=== PATIENT | male | born 1935 | race Caucasian/White ===

== ENCOUNTER 2019-04-18 17:26 | Emergency (ER) | payer OTHER ==
[2019-04-18 17:35] VITALS: TEMP 97.5; BMI 39.9
--- NOTE | 2019-04-18 17:37 | PDOC ---
Rapid Medical Evaluation Medical Evaluation: I have performed a brief in-person evaluation of this patient. The patient presents with a chief complaint of: c/o R foot swelling since 4 days ago after getting off flight from [place]; denies trauma, sob, cp; has hx of DM, asthma, HLD; is on xarelto, but family uncertain why Pertinent physical exam findings: +RLE pedal edema (R leg swelling > L leg), + erythema and warmth along dorsal aspect of R foot I have ordered the following: labs, RLE ultrasound The patient will proceed to the ED for further evaluation. 04/18/19 17:31
[2019-04-18 18:24] LABS: BASO % 1.1 % (0-2.0); EOS % 6.1 % (0-4.5); HEMATOCRIT 34.3 % (35.4-49); HEMOGLOBIN 11.3 GM/dL (11.7-16.9); LYMPH % 24.7 % (8-40); MCH 28.5 pg (25.7-33.7); MEAN CELL VOLUME 86.4 fl (80-96); MEAN PLT VOLUME 7.1 fl (7.5-11.1); MONO % 10.5 % (3.8-10.2); NEUT % 57.6 % (42.8-82.8); PLATELET COUNT 260 K/MM3 (134-434); RBC 3.97 M/mm3 (4.00-5.60); RDW 14.9 % (11.9-15.9); WHITE BLOOD COUNT 7.4 K/mm3 (4.0-10.0)
[2019-04-18 18:36] LABS: INR 0.96 (0.83-1.09); PROTHROMBIN TIME (PATIENT) 11.3 SEC (9.7-13.0)
[2019-04-18 18:38] LABS: ACTIVATED PTT 34.6 SECONDS (25.2-36.5)
[2019-04-18 18:50] LABS: ALBUMIN 3.4 g/dl (3.4-5.0); BILIRUBIN,TOTAL 0.3 mg/dL (0.2-1); BLOOD UREA NITROGEN 17.1 mg/dL (7-18); CALCIUM 8.3 mg/dL (8.5-10.1); CREATININE 1.5 mg/dL (0.55-1.3); POTASSIUM 4.8 mmol/L (3.5-5.1)
--- NOTE | 2019-04-18 19:48 | PDOC ---
History of Present Illness - General Chief Complaint: Edema Stated Complaint: SWOLLEN /RIGHT/LEG Time Seen by Provider: 04/18/19 17:31 History Source: Patient Exam Limitations: No Limitations - History of Present Illness Initial Comments: 04/18/19 20:01 HISTORY OF PRESENT ILLNESS: This is an 83-year-old male past medical history of diabetes, asthma and A. fib on Xarelto who presents emergency department for evaluation of atraumatic right foot swelling status post airline flight from [facility]. Patient reports over the past 3 days noted increased swelling and erythema to his right foot worse on the dorsum. Patient does not remember any trauma reports [place] [facility]. Patient denies any pain in the foot or toes. Patient denies any fevers or chills. No recent travel or sick contacts. PAST MEDICAL HISTORY: see HPI SURGICAL HISTORY: left TKR '18, Left "shoulder surgery" '18 ALLERGIES: No known drug allergies REVIEW OF SYSTEMS General/Constitutional: Denies fever or chills. Denies weakness, weight change. HEENT: Denies change in vision. Denies ear pain or discharge. Denies sore throat. Cardiovascular: Denies chest pain or shortness of breath. Respiratory: Denies cough, wheezing, or hemoptysis. Gastrointestinal: Denies nausea, vomiting, diarrhea or constipation. Denies rectal bleeding. Genitourinary: Denies dysuria, frequency, or change in urination. Musculoskeletal: see HPI Skin and breasts: Denies rash or easy bruising. Neurologic: Denies headache, vertigo, loss of consciousness, or loss of sensation. Psychiatric: Denies depression or anxiety. Endocrine: Denies increased thirst. Denies abnormal weight change. Hematologic/Lymphatic: Denies anemia, easy bleeding, or history of blood clots. Allergic/Immunologic: Denies hives or skin allergy. Denies latex allergy. PHYSICAL EXAM General Appearance: Well-appearing, appropriately dressed. No apparent distress , no intoxication. HEENT: EOMI, PERRLA, normal ENT inspection, normal voice, TMs normal, pharynx normal. No conjunctival pallor. No photophobia, scleral icterus. Neck: Supple. Trachea midline. No tenderness, rigidity, carotid bruit, stridor , lymphadenopathy, or thyromegaly. Respiratory/Chest: Lungs CTAB. No shortness of breath, chest tenderness, respiratory distress, accessory muscle use. No crackles, rales, rhonchi, stridor , wheezing, dullness Cardiovascular: Irregular rhythm. S1, S2. No JVD, murmur, bradycardia, tachycardia. 2+ right pedal edema. Vascular Pulses: Dorsalis-Pedis (R): 2+, Dorsalis-Pedis (L): 2+ Gastrointestinal/Abdominal: Normal bowel sounds. Protuberent abdomen soft, non- tender. No organomegaly, pulsatile mass, guarding, hernia, hepatomegaly, splenomegaly. Lymphatic: No adenopathy, tenderness. Musculoskeletal/Extremities: Normal inspection. FROM of all extremities, normal capillary refill. Pelvis Stable. Erythema present over the Dorsal aspect of MTP of toes 2 through 5 on the right foot. NVI. Integumentary: Appropriate color, dry, warm. No cyanosis, erythema, jaundice or rash Neurologic: servicer travel trailers II-XII intact. Fully oriented, alert. Appropriate mood/affect. Motor strength 5/5. No appreciable EOM palsy, facial droop or sensory deficit. Past History - Past Medical History Allergies/Adverse Reactions: Allergies Allergy/AdvReac Type Severity Reaction Status Date / Time No Known Allergies Allergy Verified 04/18/19 17:36 Home Medications: Ambulatory Orders Clindamycin [Cleocin -] 450 mg PO Q8H #63 capsule 04/18/19 Asthma: Yes Cardiac Disorders: Yes (TAKES XARELTO) COPD: No Diabetes: Yes Hypercholesterolemia: Yes - Suicide/Smoking/Psychosocial Hx Smoking History: Never smoked Hx Alcohol Use: Yes (OCCASIONALLY) Drug/Substance Use Hx: No *Physical Exam - Vital Signs Last Vital Signs Temp Pulse Resp BP Pulse Ox 97.5 F L 85 16 137/53 L 97 04/18/19 17:31 04/18/19 17:31 04/18/19 17:31 04/18/19 17:31 04/18/19 17:31 ED Treatment Course - LABORATORY CBC & Chemistry Diagram: 04/18/19 18:02 04/18/19 18:02 - ADDITIONAL ORDERS Additional order review: Laboratory Results 04/18/19 04/18/19 18:02 18:02 PT with INR 11.30 INR 0.96 PTT (Actin FS) 34.6 Sodium 140 Potassium 4.8 Chloride 106 Carbon Dioxide 23 Anion Gap 12 BUN 17.1 Creatinine 1.5 H Est GFR (CKD-EPI)AfAm 49.19 Est GFR (CKD-EPI)NonAf 42.44 Random Glucose 302 H Calcium 8.3 L Total Bilirubin 0.3 AST 21 ALT 27 Alkaline Phosphatase 106 Total Protein 7.0 Albumin 3.4 04/18/19 18:02 RBC 3.97 L MCV 86.4 MCHC 33.0 RDW 14.9 MPV 7.1 L Neutrophils % 57.6 Lymphocytes % 24.7 Monocytes % 10.5 H Eosinophils % 6.1 H Basophils % 1.1 Medical Decision Making - Medical Decision Making 04/18/19 20:04 A/P: 83-year-old male with atraumatic right foot swelling status post airline flight Labs per [facility] Duplex Dopplers of the right leg as read by Dr. Ty: There is no sonographic evidence of deep pain thrombosis. No obvious superficial thrombophlebitis is noted. X-ray of the right foot Likely discharge 04/18/19 20:32 X-rays of the right foot as read by me: No acute fractures or dislocations noted. Arthritis present in the MTP of the great toe otherwise MTP joints are within normal limits. No bone erosion present. I will discharge patient home with prescription for antibiotics and referral for a new PMD per patient request. 04/18/19 20:41 I discussed the physical exam findings, ancillary test results and final diagnoses with the patient. I answered all of the patient's questions. The patient was satisfied with the care received and felt comfortable with the discharge plan and treatment plan. The patient will call their primary care physician within 24 hours to arrange follow-up and will return to the Emergency Department with any new, persistent or worsening symptoms. Portions of this note have been documented using voice recognition software. As a result, errors may occur in the inspector aligning process. Effort has been made to correct all grammatical and inspector aligning error, but some may have been missed. *DC/Admit/Observation/Transfer Diagnosis at time of Disposition: Cellulitis Qualifiers: Site of cellulitis: extremity Site of cellulitis of extremity: lower extremity Laterality: right Qualified Code(s): L03.115 - Cellulitis of right lower limb - Discharge Dispostion Disposition: HOME Condition at time of disposition: Stable Decision to Admit order: No - Prescriptions Prescriptions: Clindamycin [Cleocin -] 450 mg PO Q8H #63 capsule - Referrals Referrals: Cornell Kearns MD [Staff Physician] - [facility] at [place] [Provider Group] - Patient Instructions Additional Instructions: Take clindamycin 450 mg 3 times a day for the next 7 days Finish all antibiotics even if you feel better. Apply warm compresses to your foot as needed. Return to emergency department for any worsening pain, drainage, or any other concerns. Thank you very much for choosing us to provide your emergent health care needs. - Post Discharge Activity
--- NOTE | 2019-04-18 19:57 | PDOC ---
*Physical Exam - Vital Signs Last Vital Signs Temp Pulse Resp BP Pulse Ox 97.5 F L 85 16 137/53 L 97 04/18/19 17:31 04/18/19 17:31 04/18/19 17:31 04/18/19 17:31 04/18/19 17:31 ED Treatment Course - LABORATORY CBC & Chemistry Diagram: 04/18/19 18:02 04/18/19 18:02 - ADDITIONAL ORDERS Additional order review: Laboratory Results 04/18/19 04/18/19 18:02 18:02 PT with INR 11.30 INR 0.96 PTT (Actin FS) 34.6 Sodium 140 Potassium 4.8 Chloride 106 Carbon Dioxide 23 Anion Gap 12 BUN 17.1 Creatinine 1.5 H Est GFR (CKD-EPI)AfAm 49.19 Est GFR (CKD-EPI)NonAf 42.44 Random Glucose 302 H Calcium 8.3 L Total Bilirubin 0.3 AST 21 ALT 27 Alkaline Phosphatase 106 Total Protein 7.0 Albumin 3.4 04/18/19 18:02 RBC 3.97 L MCV 86.4 MCHC 33.0 RDW 14.9 MPV 7.1 L Neutrophils % 57.6 Lymphocytes % 24.7 Monocytes % 10.5 H Eosinophils % 6.1 H Basophils % 1.1 Medical Decision Making - Medical Decision Making 04/18/19 19:49 Patient seen by the advanced practice provider under my direct supervision. Ancillary testing reviewed as necessary. I agree with plan as outlined by the advanced practice provider. *DC/Admit/Observation/Transfer Diagnosis at time of Disposition: Cellulitis Qualifiers: Site of cellulitis: extremity Site of cellulitis of extremity: lower extremity Laterality: right Qualified Code(s): L03.115 - Cellulitis of right lower limb - Discharge Dispostion Disposition: HOME Condition at time of disposition: Stable - Prescriptions Prescriptions: Clindamycin [Cleocin -] 450 mg PO Q8H #63 capsule - Referrals Referrals: [facility] [place] [facility] at [place] [Provider Group] Cornell Kearns MD [Staff Physician] - - Patient Instructions Additional Instructions: Take clindamycin 450 mg 3 times a day for the next 7 days Finish all antibiotics even if you feel better. Apply warm compresses to your foot as needed. Return to emergency department for any worsening pain, drainage, or any other concerns. Thank you very much for choosing us to provide your emergent health care needs. - Post Discharge Activity
[2019-04-18 20:55] VITALS: BP 128/58; PULSE 72
== END 2019-04-18 21:00 | disposition home or self-care (01) ==
LOC: JER 17:26
DX: L03.115 Cellulitis of right lower limb (principal); I48.91 Unspecified atrial fibrillation; Z79.01 Long term (current) use of anticoagulants; E11.9 Type 2 diabetes mellitus without complications; J45.909 Unspecified asthma, uncomplicated
CPT/HCPCS: 36415; 73630-TC-RT-FY; 80053; 85025; 85610; 85730; 93971-TC; 99282-25

== ENCOUNTER 2019-04-21 17:16 | Inpatient (IN) | payer OTHER ==
--- NOTE | 2019-04-21 17:28 | PDOC ---
Rapid Medical Evaluation Chief Complaint: Pain, Acute Time Seen by Provider: 04/21/19 17:26 Medical Evaluation: Allergies Allergy/AdvReac Type Severity Reaction Status Date / Time No Known Allergies Allergy Verified 04/21/19 17:26 04/21/19 17:28 83 year old male c/o right foot swelling and redness currently on antibiotics. History of DM PE: patient right foot warm to touch with swelling and erythema A: cellulitis? vs dvt? P: US labs 04/21/19 17:29 Discharge Disposition - Diagnosis Cellulitis Qualifiers: Site of cellulitis: extremity Site of cellulitis of extremity: lower extremity Laterality: right Qualified Code(s): L03.115 - Cellulitis of right lower limb - Referrals - Patient Instructions - Post Discharge Activity
[2019-04-21 18:07] LABS: BASO % 1.4 % (0-2.0); EOS % 5.9 % (0-4.5); HEMATOCRIT 34.3 % (35.4-49); HEMOGLOBIN 11.2 GM/dL (11.7-16.9); LYMPH % 25.4 % (8-40); MCH 28.2 pg (25.7-33.7); MCHC 32.7 g/dl (32.0-35.9); MEAN CELL VOLUME 86.4 fl (80-96); MEAN PLT VOLUME 6.6 fl (7.5-11.1); MONO % 9.5 % (3.8-10.2); NEUT % 57.8 % (42.8-82.8); PLATELET COUNT 261 K/MM3 (134-434); RBC 3.97 M/mm3 (4.00-5.60); RDW 14.9 % (11.9-15.9)
[2019-04-21 18:29] LABS: ALBUMIN 3.5 g/dl (3.4-5.0); BILIRUBIN,TOTAL 0.3 mg/dL (0.2-1); BLOOD UREA NITROGEN 13.8 mg/dL (7-18); CALCIUM 8.7 mg/dL (8.5-10.1); CREATININE 1.4 mg/dL (0.55-1.3); POTASSIUM 4.7 mmol/L (3.5-5.1); TOT PROT 7.3 g/dl (6.4-8.2)
--- NOTE | 2019-04-21 19:00 | PDOC ---
History of Present Illness - General Chief Complaint: Redness To Affected Area Stated Complaint: LEG SWOLLEN Time Seen by Provider: 04/21/19 17:26 History Source: Patient Exam Limitations: No Limitations - History of Present Illness Initial Comments: 04/21/19 20:42 83 yo M with a hx of HLD, DM, and afib on xarelto presents to the emergency department with right foot pain. Per the patient, onset of pain was 04/14 after arriving back from [facility] for 5 weeks. Denies trauma while he was there. Denies stepping on a stone or sea urchin. The patient was seen in our emergency department this past Thursday (4 days ago) and was prescribed clindamycin. He has been compliant with the medication since Thursday (4 days worth of doses including today) but has had worsening pain in the right foot. Denies the following: fevers, chills, inability to ambulate, dysuria, hematuria, and diarrhea. Allergies: NKDA Past History - Past Medical History Allergies/Adverse Reactions: Allergies Allergy/AdvReac Type Severity Reaction Status Date / Time No Known Allergies Allergy Verified 04/21/19 17:26 Home Medications: Ambulatory Orders Clindamycin [Cleocin -] 450 mg PO Q8H #63 capsule 04/18/19 Atorvastatin Calcium [Lipitor] 10 mg PO HS 04/21/19 Budesonide [Pulmicort 0.5 mg Nebulizer -] 1 vial IH BID 04/21/19 Linaclotide [Linzess] 290 mcg PO DAILY 04/21/19 Metformin HCl [Glucophage] 1,000 mg PO BID 04/21/19 Montelukast Sodium [Singulair] 10 mg PO HS 04/21/19 Oxybutynin Chloride [Oxybutynin Chloride ER] 5 mg PO DAILY 04/21/19 Repaglinide 0.5 mg PO BID 04/21/19 Rivaroxaban [Xarelto] 2.5 mg PO HS 04/21/19 Sitagliptin Phosphate [Januvia] 100 mg PO DAILY 04/21/19 Asthma: Yes Cardiac Disorders: Yes (TAKES XARELTO) COPD: No Diabetes: Yes Hypercholesterolemia: Yes - Immunization History Immunization Up to Date: Yes - Suicide/Smoking/Psychosocial Hx Smoking History: Never smoked Hx Alcohol Use: No Drug/Substance Use Hx: No Review of Systems - Review of Systems Able to Perform ROS?: Yes Is the patient limited Luxembourger proficient: No Constitutional: No: Chills, Diaphoresis, Fever, Weakness HEENTM: No: Eye Pain, Ear Pain, Nose Pain, Throat Pain, Mouth Pain Respiratory: No: Cough, Shortness of Breath, SOB with Exertion, Hemoptysis Cardiac (ROS): No: Chest Pain, Lightheadedness, Palpitations, Syncope, Chest Tightness ABD/GI: No: Constipated, Diarrhea, Nausea, Rectal Bleeding, Vomiting, Tarry Stools : No: Burning, Dysuria, Hematuria, Incontinence Musculoskeletal: No: Back Pain, Joint Pain, Neck Pain Integumentary: Yes: Erythema (right foot). No: Bruising, Sweating Neurological: No: Headache, Numbness, Tingling, Tremors Psychiatric: No: Change in Appetite Endocrine: No: Unexplained Weight Gain Hematologic/Lymphatic: No: Anemia *Physical Exam - Vital Signs Last Vital Signs Temp Pulse Resp BP Pulse Ox 97.8 F 67 18 118/52 L 97 04/21/19 17:27 04/21/19 17:27 04/21/19 17:27 04/21/19 17:27 04/21/19 17:27 - Physical Exam General Appearance: Yes: Nourished, Appropriately Dressed. No: Apparent Distress, Intoxicated HEENT: positive: EOMI, SHARA, Normal Voice, Symmetrical, Pharynx Normal, Hearing Grossly Normal. negative: Pale Conjunctivae, Scleral Icterus (R), Scleral Icterus (L), Muffled/Hoarse voice, Pharyngeal Erythema, Tonsillar Exudate, Tonsillar Erythema, Nasal Congestion, Rhinorrhea, Sinus Tenderness, Excessive drooling Neck: positive: Trachea midline, Supple. negative: Tender, Lymphadenopathy (R) , Lymphadenopathy (L), Tender lateral, Tender midline Respiratory/Chest: positive: Lungs Clear, Normal Breath Sounds. negative: Chest Tender, Respiratory Distress, Accessory Muscle Use, Crackles, Rales, Rhonchi, Stridor, Wheezing Cardiovascular: positive: Regular Rhythm, Regular Rate, S1, S2. negative: Systolic Murmur Gastrointestinal/Abdominal: positive: Normal Bowel Sounds, Flat, Soft. negative : Tender, Distended, Guarding, Rebound Lymphatic: negative: Adenopathy Musculoskeletal: positive: Normal Inspection. negative: CVA Tenderness, Vertebral Tenderness Extremity: positive: Normal Capillary Refill, Normal Range of Motion, Tender ( right dorsal foot. erythema noted on the dorsal surface right side with point of maximal tenderness at the MCP 2-4. Intact ROM. No puncture site. No purulence. ), Swelling. negative: Normal Inspection Integumentary: positive: Normal Color, Dry, Warm Neurologic: positive: rigging loft repairer II-XII NML intact, Fully Oriented, Alert, Normal Mood/ Affect, Normal Response, Motor Strength 5/5. negative: EOM Palsy, Facial Droop ED Treatment Course - LABORATORY CBC & Chemistry Diagram: 04/21/19 17:53 04/21/19 17:53 - ADDITIONAL ORDERS Additional order review: Laboratory Results 04/21/19 17:53 Sodium 139 Potassium 4.7 Chloride 108 H Carbon Dioxide 26 Anion Gap 6 L BUN 13.8 Creatinine 1.4 H Est GFR (CKD-EPI)AfAm 53.47 Est GFR (CKD-EPI)NonAf 46.13 Random Glucose 162 H Calcium 8.7 Total Bilirubin 0.3 AST 25 ALT 29 Alkaline Phosphatase 85 Total Protein 7.3 Albumin 3.5 04/21/19 17:53 RBC 3.97 L MCV 86.4 MCHC 32.7 RDW 14.9 MPV 6.6 L Neutrophils % 57.8 Lymphocytes % 25.4 Monocytes % 9.5 Eosinophils % 5.9 H Basophils % 1.4 Medical Decision Making - Medical Decision Making 83 yo M with a hx of HLD, DM, and afib on xarelto presents to the emergency department with right foot pain. Per the patient, onset of pain was 04/14 after arriving back from [facility] for 5 weeks. Initial vitals: Initial Vital Signs Temp Pulse Resp BP Pulse Ox 97.8 F 67 18 118/52 L 97 04/21/19 17:27 04/21/19 17:27 04/21/19 17:27 04/21/19 17:27 04/21/19 17:27 Work up; failure of outpatient abx with clindamycin (4 days total thus far). will admit for IV antibiotics with cultures and labs drawn. Laboratory Tests 04/21/19 04/21/19 04/21/19 17:53 17:53 20:05 WBC 8.0 RBC 3.97 L Hgb 11.2 L Hct 34.3 L MCV 86.4 MCH 28.2 MCHC 32.7 RDW 14.9 Plt Count 261 MPV 6.6 L Absolute Neuts (auto) 4.6 Neutrophils % 57.8 Lymphocytes % 25.4 Monocytes % 9.5 Eosinophils % 5.9 H Basophils % 1.4 Nucleated RBC % 0 Sodium 139 Potassium 4.7 Chloride 108 H Carbon Dioxide 26 Anion Gap 6 L BUN 13.8 Creatinine 1.4 H Est GFR (CKD-EPI)AfAm 53.47 Est GFR (CKD-EPI)NonAf 46.13 Random Glucose 162 H Calcium 8.7 Total Bilirubin 0.3 AST 25 ALT 29 Alkaline Phosphatase 85 B-Natriuretic Peptide 301.5 Total Protein 7.3 Albumin 3.5 IV vancomycin and zosyn ordered for MRSA coverage and pseudomonas coverage. Patient was admitted to hospitalists. EKG: Ventricular rate 65 bpm, WV 144 ms, QTC is 407 ms with NSR without ROSE MARIE or ST depression. *DC/Admit/Observation/Transfer Diagnosis at time of Disposition: Cellulitis Qualifiers: Site of cellulitis: extremity Site of cellulitis of extremity: lower extremity Laterality: right Qualified Code(s): L03.115 - Cellulitis of right lower limb - Referrals - Patient Instructions - Post Discharge Activity
[2019-04-21] MEDS ORDERED: VANCOMYCIN 1,000 MG in DEXTROSE 5%-WATER - 250 ML IVPB ONE (19:10)
[2019-04-21] MEDS ORDERED: SODIUM CHLORIDE 500 ML IV STA (19:10)
[2019-04-21] MEDS ORDERED: PIPERACILLIN/TAZOB 3.375 GM 3.375 GM in DEXTROSE 5%-WATER - 50 ML IVPB ONE (19:10)
--- NOTE | 2019-04-21 19:47 | PDOC ---
Attending Attestation - Resident Resident Name: SaharaObed - ED Attending Attestation I have performed the following: I have examined & evaluated the patient, The case was reviewed & discussed with the resident, I agree w/resident's findings & plan, Exceptions are as noted - HPI HPI: 04/21/19 19:42 83yo male with R foot pain. Pt dx with cellulitis of the foot and started on clinda which he started taking on thursday. Has been taking the abx as prescribed , but states the swelling, redness, and pain has not improved and may have become more red. Pt denies f/c. No cp/sob. States dry cough - used inhalers yesterday with relief. No wheezing. no n/v/d. No dysuria. No other Complaints. Pt is diabetic. - Physicial Exam PE: 04/21/19 19:46 Gen: aaox3, nad heart: +s1s2 reg lungs: cta b/l abd: soft, obese, nt/nd, +bs Ext: R anterior dorsum of foot with redness, swelling, warmth, and ttp, pedal pulses intact, redness extends into toes, no ulcers/no wounds, no calf ttp - Medical Decision Making 04/21/19 19:47 a/p: 83yo male with R foot swelling -pt is diabetic -pt has been on outpt abx without improvement -pt with cellulitis of the R foot -pt has failed outpt abx -will send labs, cultures -had xray a few days ago -will send xray of chest -will start broad spectrum abx 04/21/19 20:39 no elevated wbc cultures sent abx ordered microblog sent to [facility] for admission 04/21/19 21:29 resident discussed the case with [facility] who accepts pt to service Heart Score/ECG Review - ECG Intrepretation Comment:: 04/21/19 19:56 sinus at 67 with 1st degree block, rbbb, no acute st/t wave findings
[2019-04-21] MEDS ORDERED: PIPERACILLIN/TAZOB 3.375 GM 3.375 GM/50 ML BAG IVPB ONE (19:54)
[2019-04-21] MEDS ORDERED: VANCOMYCIN 1 GRAM (PRE-DOCKED) 1,000 MG/250 ML BAG IVPB ONE (19:54)
--- NOTE | 2019-04-21 20:56 | PN ---
Teaching Attending Note Name of Resident: Yesi Peña ATTENDING PHYSICIAN STATEMENT I saw and evaluated the patient. I reviewed the resident's note and discussed the case with the resident. I agree with the resident's findings and plan as documented. SUBJECTIVE: Patient is an 83 year old man with PMH of NIDDM, Asthma, HLD, Afib on xarelto, Left total knee replacement, and Left shoulder surgery who presents with with right foot pain. Was in the ER on 04/18/19 and diagnosed with cellulitis of the foot and started on clindamycin which he started taking on thursday. Has been taking it as prescribed, but states the swelling, redness, and pain has not improved and may have become more red. Patient denies fever, chills, nausea, vomiting, diarrhea, SOB, chest pain or dysuria. States he has a dry cough - used inhalers yesterday with relief. No wheezing. Was on a flight from [place] on about 04/14/19 and noted leg swelling upon arrival to [place]. OBJECTIVE: Alert Vital Signs Period Temp Pulse Resp BP Sys/Miguel Pulse Ox Last 24 Hr 97.8 F 67 18 118/52 97 HEENT: No Jaundice, eye redness or discharge, PERRLA, EOMI. Normocephalic, atraumatic. External ears are normal and hearing is grossly intact. No nasal discharge. Neck: Supple, nontender. No palpable adenopathy or thyromegaly. No JVD Chest: Good effort. Expiratory wheezing. Clear to percussion. Heart: Regular. No S3, rub or murmur Abdomen: Not distended, soft, nontender and no HSM. No rebound or guarding. Normal bowel sounds. Ext: Peripheral pulses intact. No leg edema. Anterior dorsum of right foot with redness, swelling, warmth, and tender. Erythema extends into toes. Skin: Warm and dry. No petechiae, rash or ecchymosis. Neuro: Alert. Oriented x3. CN 2-12 grossly intact. Sensation grossly intact in all four extremities and DTR are symmetric. Psych: Appropriate mood and affect. Good insight. Home Medications Medication Instructions Recorded Clindamycin [Cleocin -] 450 mg PO Q8H #63 capsule 04/18/19 Abnormal Lab Results 04/21/19 04/21/19 17:53 17:53 RBC 3.97 L Hgb 11.2 L Hct 34.3 L MPV 6.6 L Eosinophils % 5.9 H Chloride 108 H Anion Gap 6 L Creatinine 1.4 H Random Glucose 162 H ASSESSMENT AND PLAN: 1. Right foot cellulitis - Recent doppler, xray and sonogram today do not show any acute abnormality. Will treat with IV Vancomycin and Zosyn - adjusted for GFR, get MRI of right foot and consult ID. EKG shows NSR with 1o AV block and RBBB. Will treat acute asthma exacerbation with duoneb PRN and prednisone. Will continue comprehensive care of all his comorbid conditions including xarelto for Afib. 2. DM For now, we will hold the home diabetes drugs and implement sliding scale insulin regimen. Provide comprehensive diabetes care with patient teaching and counseling about the importance of adherence to prescribed diabetes regimen, euglycemia, eye care and foot care. 3. FRED - Cause unclear. Will hydrate gently, get kidney sonogram, urinalysis and monitor urine output. Consult nephrology and avoid nephrotoxic agents such as NSAIDS, aminoglycosides, contrast dyes and certain Alternative medicine products. 4. Anemia - Cause unclear. Will do basic anemia work up including serial stool guaiacs, reticulocyte count and iron studies. 5. Obesity Counseled on the risks associated with obesity. Will provide patient all the necessary assistance, counseling and positive reinforcement to facilitate weight loss. Consult cytotechnologist/histotechnologist. 6. DVT prophylaxis - On Xarelto for Afib. 7. Advance directives - Full code
[2019-04-21] MEDS: INSULIN SLIDING SCALE (NOVOLOG) 1 VIAL SQ SCH (23:00)
[2019-04-21] MEDS: SODIUM CHLORIDE 1,000 ML IV SCH (23:02)
--- NOTE | 2019-04-22 00:28 | HP ---
CHIEF COMPLAINT: R foot pain PCP: switching PCP HISTORY OF PRESENT ILLNESS: Lisa Wilson is an 83 year old male with a past medical history of diabetes, asthma, hyperlipidemia, afib (on Xarelto) who presents with right foot pain and failed outpatient treatment of cellulitis. The patient returned from [facility] on 04/14 and stated that pain of the right foot began in the airport prior to leaving [facility]. Patient denied any trauma to the foot, cuts, or walking barefoot, stated that he mostly wore sandals on during the trip. Denied fever, chills, chest pain, abdominal pain, nausea, vomiting, dizziness, lightheadedness , falls, syncope, numbness, tingling, weakness. Patient and family state that since he started having the pain an area of erythema and swelling has increased in size. He originally presented to the ED on 04/18 for the foot pain, foot x-ray was negative, DVT studies negative, and was sent out on clindamycin and told to follow up with outpatient provider. The patient had been taking antibiotics as prescribed daily, however the pain and swelling had not remitted. Patient states that now it is becoming more difficult to walk because of the pain. Additionally, patient had been complaining of a cough and wheezing. Cough was dry. Had to increase the use of his inhalers in the last week. 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 Family History: denies significant family history Allergies No Known Allergies Allergy (Verified 04/21/19 17:26) HOME MEDICATIONS: Home Medications Medication Instructions Recorded Clindamycin [Cleocin -] 450 mg PO Q8H #63 capsule 04/18/19 Atorvastatin Calcium [Lipitor] 10 mg PO HS 04/21/19 Budesonide [Pulmicort 0.5 mg 1 vial IH BID 04/21/19 Nebulizer -] Linaclotide [Linzess] 290 mcg PO DAILY 04/21/19 Metformin HCl [Glucophage] 1,000 mg PO BID 04/21/19 Montelukast Sodium [Singulair] 10 mg PO HS 04/21/19 Oxybutynin Chloride [Oxybutynin 5 mg PO DAILY 04/21/19 Chloride ER] Repaglinide 0.5 mg PO BID 04/21/19 Rivaroxaban [Xarelto] 2.5 mg PO HS 04/21/19 Sitagliptin Phosphate [Januvia] 100 mg PO DAILY 04/21/19 REVIEW OF SYSTEMS CONSTITUTIONAL: Absent: fever, chills, diaphoresis, generalized weakness, malaise, loss of appetite, weight change HEENT: Absent: rhinorrhea, nasal congestion, throat pain, throat swelling, visual changes CARDIOVASCULAR: Absent: chest pain, syncope, palpitations, irregular heart rate, lightheadedness , peripheral edema RESPIRATORY: wheezing, cough Absent: shortness of breath, dyspnea with exertion, orthopnea, stridor, hemoptysis GASTROINTESTINAL: constipation Absent: abdominal pain, abdominal distension, nausea, vomiting, diarrhea, GENITOURINARY: Absent: dysuria, frequency, urgency, hesitancy, hematuria, flank pain, MUSCULOSKELETAL: difficulty ambulating due to pain on R foot Absent: myalgia, arthralgia, joint swelling, back pain, neck pain SKIN: warmth and tenderness on the dorsal side of the R foot Absent: rash, itching, pallor HEMATOLOGIC/IMMUNOLOGIC: Absent: easy bleeding, easy bruising, lymphadenopathy, frequent infections ENDOCRINE: Absent: unexplained weight gain, unexplained weight loss, heat intolerance, cold intolerance NEUROLOGIC: Absent: headache, focal weakness or paresthesias, dizziness, unsteady gait, seizure, mental status changes, bladder or bowel incontinence PSYCHIATRIC: Absent: anxiety, depression, suicidal or homicidal ideation, hallucinations. PHYSICAL EXAMINATION Vital Signs - 24 hr 04/21/19 17:27 Temperature 97.8 F Pulse Rate 67 Respiratory 18 Rate Blood Pressure 118/52 L O2 Sat by Pulse 97 Oximetry (%) GENERAL: Awake, alert, and fully oriented, in no acute distress. HEAD: Normal with no signs of trauma. EYES: Pupils equal, round and reactive to light, extraocular movements intact, sclera anicteric, conjunctiva clear. EARS, NOSE, THROAT: Oropharynx clear without exudates. Moist mucous membranes. NECK: Normal range of motion, supple without lymphadenopathy, JVD. LUNGS: Breath sounds equal, with audible expiratory wheezes bilaterally. No crackles or coarse breath sounds. HEART: Regular rate and rhythm, normal S1 and S2 without murmur, rub. ABDOMEN: Soft, obese, nontender, normoactive bowel sounds, no guarding, no rebound, no masses. MUSCULOSKELETAL: Normal range of motion at all joints. No bony deformities or tenderness. UPPER EXTREMITIES: 2+ pulses, warm, well-perfused. No cyanosis. No clubbing. No peripheral edema. LOWER EXTREMITIES: 1+ pulses, warm, well-perfused. No calf tenderness. No peripheral edema. NEUROLOGICAL: Cranial nerves II-XII intact.5/5 muscle strength bilaterally upper and lower extremities. PSYCHIATRIC: Cooperative. Good eye contact. Appropriate mood and affect. SKIN: Warm, dry, normal turgor. Noted 7cm x 8cm warm, edematous lesion on dorsal surface of R foot. Tender to palpation, fluctuant. Noted small (0.5cm) area of possible trauma over the lesion. Laboratory Results - last 24 hr 04/21/19 04/21/19 04/21/19 17:53 17:53 20:05 WBC 8.0 RBC 3.97 L Hgb 11.2 L Hct 34.3 L MCV 86.4 MCH 28.2 MCHC 32.7 RDW 14.9 Plt Count 261 MPV 6.6 L Absolute Neuts (auto) 4.6 Neutrophils % 57.8 Lymphocytes % 25.4 Monocytes % 9.5 Eosinophils % 5.9 H Basophils % 1.4 Nucleated RBC % 0 Sodium 139 Potassium 4.7 Chloride 108 H Carbon Dioxide 26 Anion Gap 6 L BUN 13.8 Creatinine 1.4 H Est GFR (CKD-EPI)AfAm 53.47 Est GFR (CKD-EPI)NonAf 46.13 POC Glucometer Random Glucose 162 H Calcium 8.7 Total Bilirubin 0.3 AST 25 ALT 29 Alkaline Phosphatase 85 B-Natriuretic Peptide 301.5 Total Protein 7.3 Albumin 3.5 04/21/19 22:58 WBC RBC Hgb Hct MCV MCH MCHC RDW Plt Count MPV Absolute Neuts (auto) Neutrophils % Lymphocytes % Monocytes % Eosinophils % Basophils % Nucleated RBC % Sodium Potassium Chloride Carbon Dioxide Anion Gap BUN Creatinine Est GFR (CKD-EPI)AfAm Est GFR (CKD-EPI)NonAf POC Glucometer 177 Random Glucose Calcium Total Bilirubin AST ALT Alkaline Phosphatase B-Natriuretic Peptide Total Protein Albumin EKG--> 1st degree heart block, RBBB, no ST segment changes, QTc 448 ASSESSMENT/PLAN: Lisa Wilson is an 83 year old male with a past medical history of diabetes, asthma, hyperlipidemia, afib (on Xarelto) admitted for failed outpatient treatment of cellulitis. R foot pain DM Asthma Afib FRED/CKD Anemia R foot pain - likely cellulitis secondary to questionable cut on R foot - failed outpatient treatment and admitted for IV antibiotics - continue IV Vancomycin and Zosyn, renally dosed - vanco level - ID consultation - Blood cultures drawn - MRI to evalute for osteomyelitis - diabetic foot care, podiatry consulted - IV hydration DM - BGM - ISS - A1c Asthma - increased amount of wheezing and cough as noted by patient, may be related to recent infection - continue home inhalers - duoneb q6h prn - prednisone 40mg Afib - currently in sinus rhythm - continue Xarelto FRED/CKD - CRE 1.4, previous 3 days prior CRE 1.5, denies history of renal pathology - IVF - urine CRE, electrolytes - renal U/S Anemia - unclear origin, ? setting in CKD/FRED - iron studies - may benefit from supplemental iron FEN - NS at 75cc/hr - continue to monitor electrolytes and replete as necessary - Diabetic diet Prophylaxis - on Xarelto Code - full code MARIBEL FAM DO - PGY-1 Visit type - Emergency Visit Emergency Visit: Yes ED Registration Date: 04/21/19 Care time: The patient presented to the Emergency Department on the above date and was hospitalized for further evaluation of their emergent condition. - New Patient This patient is new to me today: Yes Date on this admission: 04/22/19 - Critical Care Critical Care patient: No
[2019-04-22] MEDS ORDERED: PIPERACILLIN/TAZOB 3.375 GM 3.375 GM/50 ML BAG IVPB ONE ×2 (03:11→09:17)
[2019-04-22] MEDS: PIPERACILLIN/TAZOB 3.375 GM 3.375 GM in DEXTROSE 5%-WATER - 50 ML IVPB SCH ×3 (03:26→19:45)
[2019-04-22] MEDS ORDERED: ALBUTEROL SO4 2.5/IPRATROPIUM 0.5 INH SOL 3 ML VIAL.NEB. NEB ONE ×2 (03:33→13:05)
[2019-04-22] MEDS: ALBUTEROL SO4 2.5/IPRATROPIUM 0.5 INH SOL 3 ML VIAL.NEB. NEB PRN ×2 (03:39→13:04)
[2019-04-22 07:25] LABS: BASO % 1.2 % (0-2.0); EOS % 6.4 % (0-4.5); HEMATOCRIT 33.2 % (35.4-49); HEMOGLOBIN 11.1 GM/dL (11.7-16.9); LYMPH % 18.9 % (8-40); MCH 28.7 pg (25.7-33.7); MCHC 33.3 g/dl (32.0-35.9); MEAN CELL VOLUME 86.1 fl (80-96); MEAN PLT VOLUME 6.6 fl (7.5-11.1); MONO % 8.6 % (3.8-10.2); NEUT % 64.9 % (42.8-82.8); PLATELET COUNT 240 K/MM3 (134-434); RBC 3.86 M/mm3 (4.00-5.60); RDW 14.9 % (11.9-15.9); WHITE BLOOD COUNT 6.8 K/mm3 (4.0-10.0)
[2019-04-22 07:50] LABS: ALBUMIN 3.4 g/dl (3.4-5.0); BILIRUBIN,TOTAL 0.5 mg/dL (0.2-1); CALCIUM 8.4 mg/dL (8.5-10.1); CREATININE 1.2 mg/dL (0.55-1.3); MAGNESIUM 1.9 mg/dL (1.8-2.4); POTASSIUM 4.5 mmol/L (3.5-5.1); TOT PROT 7.1 g/dl (6.4-8.2)
[2019-04-22] MEDS: INSULIN SLIDING SCALE (NOVOLOG) 1 VIAL SQ SCH ×4 (08:22→23:02)
--- NOTE | 2019-04-22 08:57 | PN ---
Progress Note, Physician Chief Complaint: swelling of right foot and cough History of Present Illness: 83 year old male with a past medical history of diabetes, asthma, hyperlipidemia , afib (on Xarelto) who presents with right foot pain and failed outpatient treatment of cellulitis. The patient returned from [facility] on 04/14 and stated that pain of the right foot began in the airport prior to leaving [facility]. Patient denied any trauma to the foot, cuts, or walking barefoot, stated that he mostly wore sandals on during the trip. Denied fever, chills, chest pain, abdominal pain, nausea, vomiting, dizziness, lightheadedness, falls, syncope, numbness, tingling, weakness. Patient and family state that since he started having the pain an area of erythema and swelling has increased in size. He originally presented to the ED on 04/18 for the foot pain, foot x-ray was negative , DVT studies negative, and was sent out on clindamycin and told to follow up with outpatient provider. The patient had been taking antibiotics as prescribed daily, however the pain and swelling had not remitted. Patient states that now it is becoming more difficult to walk because of the pain. Additionally, patient had been complaining of a cough and wheezing. Cough was dry. Had to increase the use of his inhalers in the last week. - Current Medication List Current Medications: Active Medications Albuterol/Ipratropium (Duoneb -) 1 amp NEB RQID PRN PRN Reason: SHORTNESS OF BREATH Last Admin: 04/22/19 03:39 Dose: 1 amp Atorvastatin Calcium (Lipitor -) 10 mg PO HS ASHLEE Budesonide (Pulmicort 0.5 Mg Nebulizer -) 1 amp NEB RBID ASHLEE Piperacillin Sod/Tazobactam (Sod 3.375 gm/ Dextrose) 50 mls @ 100 mls/hr IVPB Q6H ASHLEE; Protocol Sodium Chloride (Normal Saline -) 1,000 mls @ 75 mls/hr IV ASDIR ASHLEE Last Admin: 04/21/19 23:02 Dose: 75 mls/hr Piperacillin Sod/Tazobactam (Sod 3.375 gm/ Dextrose) 50 mls @ 100 mls/hr IVPB Q6H-IV ASHLEE Stop: 04/22/19 21:29 Last Admin: 04/22/19 03:26 Dose: 100 mls/hr Insulin Aspart (Novolog Vial Sliding Scale -) 1 vial SQ ACHS [facility]; Protocol Last Admin: 04/22/19 08:22 Dose: Not Given Montelukast Sodium (Singulair -) 10 mg PO HS [facility] Non-Formulary Medication (Linaclotide [Linzess]) 290 mcg PO DAILY [facility] Non-Formulary Medication (Oxybutynin Chloride [Oxybutynin Chloride Er]) 5 mg PO DAILY [facility] Prednisone (Deltasone -) 40 mg PO DAILY [facility] Rivaroxaban (Xarelto) 2.5 mg PO HS [facility] - Objective Vital Signs: Vital Signs Temperature 97.8 F 04/22/19 07:12 Pulse Rate 70 04/22/19 07:12 Respiratory Rate 17 04/22/19 07:12 Blood Pressure 121/54 L 04/22/19 07:12 O2 Sat by Pulse Oximetry (%) 97 04/22/19 07:12 Additional Findings/Remarks: GENERAL: Awake, alert, and fully oriented, in no acute distress. HEAD: Normal with no signs of trauma. EYES: Pupils equal, round and reactive to light, extraocular movements intact, sclera anicteric, conjunctiva clear. EARS, NOSE, THROAT: Oropharynx clear without exudates. Moist mucous membranes. NECK: Normal range of motion, supple without lymphadenopathy, JVD. LUNGS: Breath sounds equal, with audible expiratory wheezes bilaterally. No crackles or coarse breath sounds. HEART: Regular rate and rhythm, normal S1 and S2 without murmur, rub. ABDOMEN: Soft, obese, nontender, normoactive bowel sounds, no guarding, no rebound, no masses. MUSCULOSKELETAL: Normal range of motion at all joints. No bony deformities or tenderness. UPPER EXTREMITIES: 2+ pulses, warm, well-perfused. No cyanosis. No clubbing. No peripheral edema. LOWER EXTREMITIES: 1+ pulses, warm, well-perfused. No calf tenderness. No peripheral edema. NEUROLOGICAL: Cranial nerves II-XII intact.5/5 muscle strength bilaterally upper and lower extremities. PSYCHIATRIC: Cooperative. Good eye contact. Appropriate mood and affect. SKIN: Warm, dry, normal turgor 7x7 edematous lesion on right dorsum of foot. Tender to palpation and flucuant. Labs: CBC, BMP 04/22/19 07:00 04/22/19 07:00 - ....Imaging Chest X-ray: Image Reviewed (atelectasis of right base, right shoulder hardware noted) MRI: Report Reviewed Problem List - Problems (1) Diabetes Assessment/Plan: BGM AC/HS with novolog sliding scale diabetic diet restart oral hypoglycemics on discharge Code(s): E11.9 - TYPE 2 DIABETES MELLITUS WITHOUT COMPLICATIONS (2) Asthma Assessment/Plan: c/w inhaled pulmicort duo nebs PRN Code(s): J45.909 - UNSPECIFIED ASTHMA, UNCOMPLICATED (3) HLD (hyperlipidemia) Assessment/Plan: c/w statin Code(s): E78.5 - HYPERLIPIDEMIA, UNSPECIFIED (4) Afib Assessment/Plan: c/w xarelto Code(s): I48.91 - UNSPECIFIED ATRIAL FIBRILLATION (5) FRED (acute kidney injury) Assessment/Plan: Cr 1.4 down to 1.2 with hydration continue to monitor avoid nephrotoxic agents Code(s): N17.9 - ACUTE KIDNEY FAILURE, UNSPECIFIED (6) Prophylactic measure Assessment/Plan: FEN diabetic diet no need for IVF DVT ambulatory on xarelto Dispo maintain as inpatient full code discharge planning Code(s): Z29.9 - ENCOUNTER FOR PROPHYLACTIC MEASURES, UNSPECIFIED (7) Cellulitis Assessment/Plan: US in ED negative for abscess appreciate ID consultation c/w aureliano-change charge to PO if foot looks improved tomorrow No surgical intervention necessary at this time fas per Dr Fernandez Could consider MRI if doesn't improve, has metal implants but likely would be fine for MRI but would need to be cleared by his orthopedist b/c unsure of exact implants Code(s): L03.90 - CELLULITIS, UNSPECIFIED Qualifiers: Site of cellulitis: extremity Site of cellulitis of extremity: lower extremity Laterality: right Qualified Code(s): L03.115 - Cellulitis of right lower limb (8) Atelectasis Assessment/Plan: CXR done with atelctasis noted to R encourage incentive spirometry and ambulation Code(s): J98.11 - ATELECTASIS Visit type - Emergency Visit Emergency Visit: Yes ED Registration Date: 04/21/19 Care time: The patient presented to the Emergency Department on the above date and was hospitalized for further evaluation of their emergent condition. - New Patient This patient is new to me today: Yes Date on this admission: 04/22/19 - Critical Care Critical Care patient: No - Discharge Referral Referred to [facility] Med [facility].: No
[2019-04-22] MEDS: BUDESONIDE 0.5 MG/2 ML INH SUSP VIAL NEB SCH ×2 (09:25→20:12)
[2019-04-22] MEDS: predniSONE 20 MG TABLET (UD) PO SCH (09:27)
[2019-04-22] MEDS ORDERED: PATIENT'S OWN MEDICATION (NON-FORMULARY) (Oxybutynin Chloride [Oxybutynin Chloride Er] 5 M PO SCH (10:00)
[2019-04-22] MEDS ORDERED: PATIENT'S OWN MEDICATION (NON-FORMULARY) (Linaclotide [Linzess] 290 MCG) PO SCH (10:00)
[2019-04-22] MEDS ORDERED: ENOXAPARIN NA (PORCINE) 40 MG/0.4 ML DISP.SYRIN SQ SCH (10:00)
--- NOTE | 2019-04-22 11:45 | PN ---
Progress Note (short form) - Note Progress Note: ID consult dictated cellulitis of the right foot 83 yo man seen in ED on 04/18 with pain and swelling of the right foot- he had just returned from [facility] on 04/14 he had xray and dopplers done which were negative and was discharged on clindamycin which he has been taking he returns last night with increasing pain of the foot and persistent erythema of the dorsum of the right foot no fevers given vanco/zosyn POC us negative for abscess in ED now able to ambulate without pain improving cellulitis of the foot continue zosyn 24 hours, if continues to improve can switch to augmentin in am Problem List - Problems (1) Cellulitis Code(s): L03.90 - CELLULITIS, UNSPECIFIED Qualifiers: Site of cellulitis: extremity Site of cellulitis of extremity: lower extremity Laterality: right Qualified Code(s): L03.115 - Cellulitis of right lower limb
--- NOTE | 2019-04-22 14:06 | EKG ---
Test Reason : Blood Pressure : / mmHG Vent. Rate : 067 BPM Atrial Rate : 067 BPM P-R Int : 240 ms QRS Dur : 146 ms QT Int : 424 ms P-R-T Axes : 015 014 030 degrees QTc Int : 448 ms SINUS RHYTHM WITH 1ST DEGREE A-V BLOCK RIGHT BUNDLE BRANCH BLOCK ABNORMAL ECG NO PREVIOUS ECGS AVAILABLE Confirmed by RANJITH GERMAN MD ([id number]) on 04/22/2019 2:06:09 PM Referred By: Confirmed By:RANJITH GERMAN MD
[2019-04-22 14:27] VITALS: BMI 38.7
--- NOTE | 2019-04-22 17:13 | CONSULT ---
Consult - text type - Consultation Consultation Note: PODIATRY 83 Y/o diabetic male seen with right fot cellulitis. State was on vacation and upon return had swelling and pain and redness top of the right foot. Has xray and US which were both negative. Had been put on oral abx and then returned to the ED due to worsening of redness. Admitted and has been on abx. States foot is feeling better and redness improving. Denies any other complaints. O: Right foot with erythema and pitting edema noted dorsaly over the midfoot, no drainage, no open wound, no streaking proximally, no signs of ascending infection, pulses palpable A: Diabetes type 2 Right foot cellulitis; resolving P: evaluated and reviewed Per patient is getting better US in ED negative for abscess IV abx per ID No surgical intervention necessary at this time from podiatric standpoint Could consider MRI if doesn't improve, has metal implants but likely would be fine for MRI but would need to be cleared by his orthopedist b/c unsure of exact implants Will follow as needed
[2019-04-22] MEDS ORDERED: PIPERACILLIN/TAZOBACTAM 3.375 GM VIAL IVPB ONE (19:40)
[2019-04-22] MEDS ORDERED: DEXTROSE 5%-WATER - 50 ML IVPB ONE (19:40)
[2019-04-22] MEDS ORDERED: RIVAROXABAN 2.5 MG TABLET PO SCH (22:00)
[2019-04-22] MEDS ORDERED: ATORVASTATIN CA 10 MG TABLET (FP) PO SCH (22:00)
[2019-04-22] MEDS ORDERED: MONTELUKAST NA 10 MG TABLET PO SCH (22:00)
[2019-04-22] MEDS ORDERED: PT OWN MED DRAWER 7, Y5N ONE (22:34)
[2019-04-23] MEDS ORDERED: DEXTROSE 5%-WATER - 50 ML IVPB ONE ×2 (02:55→08:53)
[2019-04-23] MEDS ORDERED: PIPERACILLIN/TAZOBACTAM 3.375 GM VIAL IVPB ONE ×2 (02:55→08:53)
[2019-04-23] MEDS: PIPERACILLIN/TAZOB 3.375 GM 3.375 GM in DEXTROSE 5%-WATER - 50 ML IVPB SCH ×3 (02:59→10:27)
[2019-04-23] MEDS: SODIUM CHLORIDE 1,000 ML IV SCH (03:06)
[2019-04-23] MEDS: INSULIN SLIDING SCALE (NOVOLOG) 1 VIAL SQ SCH ×3 (06:54→17:36)
[2019-04-23] MEDS: BUDESONIDE 0.5 MG/2 ML INH SUSP VIAL NEB SCH (07:30)
[2019-04-23 08:21] LABS: BASO % 0.7 % (0-2.0); EOS % 1.7 % (0-4.5); HEMOGLOBIN 11.4 GM/dL (11.7-16.9); LYMPH % 23.2 % (8-40); MCH 28.6 pg (25.7-33.7); MCHC 33.4 g/dl (32.0-35.9); MEAN CELL VOLUME 85.4 fl (80-96); MEAN PLT VOLUME 6.7 fl (7.5-11.1); MONO % 7.6 % (3.8-10.2); NEUT % 66.8 % (42.8-82.8); PLATELET COUNT 287 K/MM3 (134-434); RBC 3.98 M/mm3 (4.00-5.60); RDW 14.6 % (11.9-15.9); WHITE BLOOD COUNT 8.4 K/mm3 (4.0-10.0)
[2019-04-23 09:18] LABS: ALBUMIN 3.4 g/dl (3.4-5.0); BILIRUBIN,TOTAL 0.6 mg/dL (0.2-1); CREATININE 1.2 mg/dL (0.55-1.3); MAGNESIUM 2.1 mg/dL (1.8-2.4); POTASSIUM 4.3 mmol/L (3.5-5.1); TOT PROT 7.3 g/dl (6.4-8.2)
[2019-04-23] MEDS: predniSONE 20 MG TABLET (UD) PO SCH (10:28)
[2019-04-23 16:40] VITALS: BP 144/73; PULSE 56; TEMP 97.6
--- NOTE | 2019-04-24 17:03 | DS ---
Physical Exam: Chief Complaint: swelling of right foot and cough History of Present Illness: 83 year old male with a past medical history of diabetes, asthma, hyperlipidemia , afib (on Xarelto) who presents with right foot pain and failed outpatient treatment of cellulitis. The patient returned from [facility] on 04/14 and stated that pain of the right foot began in the airport prior to leaving [facility]. Patient denied any trauma to the foot, cuts, or walking barefoot, stated that he mostly wore sandals on during the trip. Denied fever, chills, chest pain, abdominal pain, nausea, vomiting, dizziness, lightheadedness, falls, syncope, numbness, tingling, weakness. Patient and family state that since he started having the pain an area of erythema and swelling has increased in size. He originally presented to the ED on 04/18 for the foot pain, foot x-ray was negative , DVT studies negative, and was sent out on clindamycin and told to follow up with outpatient provider. The patient had been taking antibiotics as prescribed daily, however the pain and swelling had not remitted. Patient states that now it is becoming more difficult to walk because of the pain. Additionally, patient had been complaining of a cough and wheezing. Cough was dry. Had to increase the use of his inhalers in the last week. SUBJECTIVE: Patient seen and examined CONSTITUTIONAL: Absent: fever, chills, diaphoresis, generalized weakness, malaise, loss of appetite, weight change HEENT: Absent: rhinorrhea, nasal congestion, throat pain, throat swelling, visual changes CARDIOVASCULAR: Absent: chest pain, syncope, palpitations, irregular heart rate, lightheadedness , peripheral edema RESPIRATORY: wheezing, cough Absent: shortness of breath, dyspnea with exertion, orthopnea, stridor, hemoptysis GASTROINTESTINAL: constipation Absent: abdominal pain, abdominal distension, nausea, vomiting, diarrhea, GENITOURINARY: Absent: dysuria, frequency, urgency, hesitancy, hematuria, flank pain, MUSCULOSKELETAL: Able to ambulate without discomfort Absent: myalgia, arthralgia, joint swelling, back pain, neck pain SKIN: warmth and tenderness on the dorsal side of the R foot Absent: rash, itching, pallor HEMATOLOGIC/IMMUNOLOGIC: Absent: easy bleeding, easy bruising, lymphadenopathy, frequent infections ENDOCRINE: Absent: unexplained weight gain, unexplained weight loss, heat intolerance, cold intolerance NEUROLOGIC: Absent: headache, focal weakness or paresthesias, dizziness, unsteady gait, seizure, mental status changes, bladder or bowel incontinence PSYCHIATRIC: Absent: anxiety, depression, suicidal or homicidal ideation, hallucinations. OBJECTIVE: PHYSICAL EXAM GENERAL: Awake, alert, and fully oriented, in no acute distress. HEAD: Normal with no signs of trauma. EYES: Pupils equal, round and reactive to light, extraocular movements intact, sclera anicteric, conjunctiva clear. EARS, NOSE, THROAT: Oropharynx clear without exudates. Moist mucous membranes. NECK: Normal range of motion, supple without lymphadenopathy, JVD. LUNGS: Breath sounds equal. No crackles or coarse breath sounds. HEART: Regular rate and rhythm, normal S1 and S2 ABDOMEN: Soft, obese, nontender, normoactive bowel sounds, no guarding, no rebound, no masses. MUSCULOSKELETAL: Normal range of motion at all joints. No bony deformities or tenderness. UPPER EXTREMITIES: 2+ pulses, warm, well-perfused. No cyanosis. No clubbing. No peripheral edema. LOWER EXTREMITIES: 1+ pulses, warm, well-perfused. No calf tenderness. No peripheral edema. NEUROLOGICAL: Cranial nerves II-XII intact.5/5 muscle strength bilaterally upper and lower extremities. PSYCHIATRIC: Cooperative. Good eye contact. Appropriate mood and affect. SKIN: Warm, dry, normal turgor. Noted 7cm x 8cm warm, edematous lesion on dorsal surface of R foot. Not tender to palpation HOSPITAL COURSE: Date of Admission:04/21/19 ....Imaging Chest X-ray: Image Reviewed (atelectasis of right base, right shoulder hardware noted) MRI: Report Reviewed Problem List - Problems (1) Diabetes Assessment/Plan: BGM AC/HS with novolog sliding scale diabetic diet restart oral hypoglycemics on discharge Code(s): E11.9 - TYPE 2 DIABETES MELLITUS WITHOUT COMPLICATIONS (2) Asthma Assessment/Plan: c/w inhaled pulmicort duo nebs PRN Code(s): J45.909 - UNSPECIFIED ASTHMA, UNCOMPLICATED (3) HLD (hyperlipidemia) Assessment/Plan: c/w statin Code(s): E78.5 - HYPERLIPIDEMIA, UNSPECIFIED (4) Afib Assessment/Plan: c/w xarelto Code(s): I48.91 - UNSPECIFIED ATRIAL FIBRILLATION (5) FRED (acute kidney injury) Assessment/Plan: Cr 1.4 down to 1.2 with hydration continue to monitor avoid nephrotoxic agents Code(s): N17.9 - ACUTE KIDNEY FAILURE, UNSPECIFIED (6) Prophylactic measure Assessment/Plan: FEN diabetic diet no need for IVF DVT ambulatory on xarelto Dispo maintain as inpatient full code discharge planning Code(s): Z29.9 - ENCOUNTER FOR PROPHYLACTIC MEASURES, UNSPECIFIED (7) Cellulitis Assessment/Plan: US in ED negative for abscess ID following c/w zoysn-change charge to PO if foot looks improved No surgical intervention necessary at this time fas per Dr Fernandez Could consider MRI if doesn't improve, has metal implants but likely would be fine for MRI but would need to be cleared by his orthopedist b/c unsure of exact implants Code(s): L03.90 - CELLULITIS, UNSPECIFIED Qualifiers: Site of cellulitis: extremity Site of cellulitis of extremity: lower extremity Laterality: right Qualified Code(s): L03.115 - Cellulitis of right lower limb (8) Atelectasis Assessment/Plan: CXR done with atelctasis noted to R encourage incentive spirometry and ambulation Code(s): J98.11 - ATELECTASIS Date of Discharge: 04/24/19 Minutes to complete discharge: 40 Discharge Summary Reason For Visit: CELLULITIS Condition: Improved - Instructions Diet, Activity, Other Instructions: Resume activity as tolerated and resume a Heart Healthy Diet. Follow up with the Infectious Disease, Dr. Gino Trivedi. Call his office on Thursday to set up an appointment for the same week. New Medications: Augmentin 875 PO BID for 10 days Referrals: Gino Trivedi MD [Staff Physician] - Disposition: HOME - Home Medications Comprehensive Discharge Medication List: Ambulatory Orders Atorvastatin Calcium [Lipitor] 10 mg PO HS 04/21/19 Budesonide [Pulmicort 0.5 mg Nebulizer -] 1 vial IH BID 04/21/19 Linaclotide [Linzess] 290 mcg PO DAILY 04/21/19 Metformin HCl [Glucophage] 1,000 mg PO BID 04/21/19 Montelukast Sodium [Singulair] 10 mg PO HS 04/21/19 Oxybutynin Chloride [Oxybutynin Chloride ER] 5 mg PO DAILY 04/21/19 Repaglinide 0.5 mg PO BID 04/21/19 Sitagliptin Phosphate [Januvia] 100 mg PO DAILY 04/21/19 Amox-Tr/K Cl [Augmentin - 875Mg Tablet] 1 tab PO BID 10 Days #20 tablet Rivaroxaban [Xarelto -] 20 mg PO HS 04/23/19 This patient is new to me today: Yes Date on this admission: 04/24/19 Emergency Visit: Yes ED Registration Date: 04/21/19 Care time: The patient presented to the Emergency Department on the above date and was hospitalized for further evaluation of their emergent condition. Critical Care patient: No - Discharge Referral Referred to [facility] Med P.C.: No
== END 2019-04-23 18:40 | disposition home or self-care (01) | DRG 202 ==
LOC: JER 17:16 → JERBED 21:19 → J8W 04-22 13:49
PROVIDERS: ADMIT Internal Medicine; ATTEND Nurse Practitioner Acute Care
DX: J45.901 Unspecified asthma with (acute) exacerbation (principal); L03.115 Cellulitis of right lower limb; N17.9 Acute kidney failure, unspecified; J98.11 Atelectasis; I12.9 Hypertensive chronic kidney disease with stage 1 through stage 4 chronic kidney disease, or unspecified chronic kidney disease; E11.22 Type 2 diabetes mellitus with diabetic chronic kidney disease; N18.9 Chronic kidney disease, unspecified; I48.91 Unspecified atrial fibrillation; Z79.01 Long term (current) use of anticoagulants; I44.0 Atrioventricular block, first degree; Z96.652 Presence of left artificial knee joint; D64.9 Anemia, unspecified; E66.9 Obesity, unspecified; Z68.38 Body mass index [BMI] 38.0-38.9, adult; Z79.84 Long term (current) use of oral hypoglycemic drugs
CPT/HCPCS: 36415; 71046-TC-FY; 73718-TC-RT; 76775-TC; 76856-TC; 80053; 82728; 82962; 83036; 83540; 83550; 83735; 83880; 85025; 87040; 93005; 93010; 94640; 99284-25; G0480; J7030

== ENCOUNTER 2019-04-28 07:53 | Emergency (ER) | payer OTHER ==
[2019-04-28 08:03] VITALS: BMI 39.5
--- NOTE | 2019-04-28 08:24 | PDOC ---
History of Present Illness - General Chief Complaint: Back Pain Stated Complaint: BACK PAIN Time Seen by Provider: 04/28/19 08:17 History Source: Patient Exam Limitations: No Limitations - History of Present Illness Initial Comments: Pt is an 83 yo M, with PMH of DM, HLD, asthma, and AFib (on xarelto), who is presenting with L-sided back pain since yesterday afternoon. Pt states yesterday he had been bending over to fix the mailbox, and later in the evening , began to experience L-sided back pain which kept him up during the night. The pts daughter provided him with 1 dose of her own prescription of 4 mg tizanidine PO, which he said did not relieve his pain. Pt denies having pain like this before. Pt was recently discharged from [facility] for cellulitis and osteomyelitis of his R lower leg, which he says has been improving (PO augmentin at home). Pt denies any fevers/chills, headache, vision changes, syncope, chest pain, palpitations, SOB, nausea/vomiting, abdominal pain, midline back pain, incontinence of urine or stool, urinary symptoms, diarrhea/ constipation, numbness/weakness of the extremities, or leg swelling. Allergies: NKDA PCP: Dr. Hahn Social: Pt denies any cigarette, alcohol, or drug use. Pt denies any recent travel or sick contacts. Surgical: L TKR, shoulder surgeries. No spinal interventions in the past. No history of back pain. Family: no relevant history. 04/28/19 08:52 Past History - Travel Traveled outside of the country in the last 30 days: No Close contact w/someone who was outside of country & ill: No - Past Medical History Allergies/Adverse Reactions: Allergies Allergy/AdvReac Type Severity Reaction Status Date / Time No Known Allergies Allergy Verified 04/28/19 07:58 Home Medications: Ambulatory Orders Atorvastatin Calcium [Lipitor] 10 mg PO HS 04/21/19 Linaclotide [Linzess] 290 mcg PO BID 04/21/19 Metformin HCl [Glucophage] 1,000 mg PO BID 04/21/19 Montelukast Sodium [Singulair] 10 mg PO BID 04/21/19 Oxybutynin Chloride [Oxybutynin Chloride ER] 5 mg PO BID 04/21/19 Repaglinide 0.5 mg PO DAILY 04/21/19 Sitagliptin Phosphate [Januvia] 100 mg PO DAILY 04/21/19 Rivaroxaban [Xarelto -] 20 mg PO HS 04/23/19 Methocarbamol [Robaxin -] 500 mg PO BID #10 tablet 04/28/19 Telmisartan 40 mg PO BID 04/28/19 Asthma: Yes Cardiac Disorders: Yes (TAKES XARELTO) COPD: No Diabetes: Yes Hypercholesterolemia: Yes - Immunization History Immunization Up to Date: Yes - Suicide/Smoking/Psychosocial Hx Smoking History: Never smoked Have you smoked in the past 12 months: No Information on smoking cessation initiated: No Hx Alcohol Use: No Drug/Substance Use Hx: No Substance Use Type: None Hx Substance Use Treatment: No Review of Systems - Review of Systems Able to Perform ROS?: Yes Is the patient limited Qatari proficient: No Constitutional: Yes: Weight Stable. No: Chills, Diaphoresis, Fever, Loss of Appetite, Malaise, Weakness HEENTM: No: Recent change in vision, Nose Congestion, Throat Pain, Throat Swelling, Difficulty Swallowing Respiratory: No: Cough, Orthopnea, Shortness of Breath Cardiac (ROS): No: Chest Pain, Edema, Irregular Heart Rate, Lightheadedness, Palpitations, Syncope, Chest Tightness ABD/GI: No: Constipated, Diarrhea, Nausea, Poor Appetite, Poor Fluid Intake, Vomiting : No: Burning, Dysuria, Frequency, Hematuria, Pain, Urgency Musculoskeletal: Yes: See HPI, Back Pain, Muscle Pain. No: Joint Pain, Joint Swelling, Muscle Weakness, Neck Pain Integumentary: No: Rash Neurological: No: Headache, Numbness, Paresthesia, Weakness, Unsteady Gait, Dizziness Psychiatric: No: Sleep Pattern Change, Change in Appetite Endocrine: No: Increased Urine, Change in Weight Hematologic/Lymphatic: Yes: See HPI (Afib on xarelto, no DVT or PE in the past) . No: Anemia, Blood Clots, Easy Bleeding, Easy Bruising All Other Systems: Reviewed and Negative *Physical Exam - Vital Signs Last Vital Signs Temp Pulse Resp BP Pulse Ox 98.5 F 59 L 17 118/61 96 04/28/19 07:58 04/28/19 07:58 04/28/19 07:58 04/28/19 07:58 04/28/19 07:58 - Physical Exam Comments: Vitals stable, pt afebrile. Pt in NAD, sitting upright and appears to be with back spasm. Obese body habitus. Pt alert and oriented x3. abstract clerk generally intact, muscular strength and sensation intact in all extremities. No midline spinal tenderness, step-offs, or crepitus. Reproducible L lower paraspinal TTP over lumbar region. Straight leg test negative. Head normocephalic, atraumatic. Eyes PERRLA, EOMI. Oropharynx without erythema or exudates, no LAD b/l. No nasal congestion, hearing intact. Clear heart sounds, S1/S2, no JVD, b/l pedal edema, or heart murmur. Clear lung sounds, no respiratory distress, wheezes, crackles, or accessory muscle use. No abdominal or CVA tenderness to palpation, no rebound, no guarding. Abdomen soft, non-distended, and with normoactive bowel sounds. Skin without jaundice or rash. 04/28/19 09:24 Medical Decision Making - Medical Decision Making Pt was seen at bedside, also will be seen by attending Dr. Acosta. Pt presenting with L-sided paraspinal lower back pain. Pt was recently in the hospital, likely deconditioned with back spasm. Will provide PO medications and reassess. Will also do UA and bedside aortic/renal US to evaluate for renal dysfunction vs AAA. Provided 5 mg PO valium, lidocaine patch, and 500 mg PO robaxin for improvement of spasm and back pain. Will continue to reassess pt and monitor for symptomatic improvement. 04/28/19 09:26 Bedside US showed no evidence of enlarged aorta (limited by pts size and bowel gas), no hydronephrosis. Pt ambulatory in ED and pain improved after interventions. D/C to home with PCP f/u. Strict return precautions provided with pt understanding. 04/28/19 11:24 *DC/Admit/Observation/Transfer Diagnosis at time of Disposition: Back muscle spasm Low back pain Qualifiers: Chronicity: acute Back pain laterality: left Sciatica presence: unspecified whether sciatica present Qualified Code(s): M54.5 - Low back pain - Discharge Dispostion Disposition: HOME Condition at time of disposition: Improved Decision to Admit order: No - Prescriptions Prescriptions: Methocarbamol [Robaxin -] 500 mg PO BID #10 tablet - Referrals Referrals: Jaky Hahn [Primary Care Provider] - Dallas Smith DO [Staff Physician] - - Patient Instructions Printed Discharge Instructions: DI for Low Back Pain Additional Instructions: You were seen in the ER today for low back pain. The results of your labs and imaging today were normal. Please follow-up with your primary care doctor and orthopedics as needed to discuss your visit and make sure your symptoms have improved. Please return to the ER if you have any worsening pain, incontinence of urine or stool, weakness or numbness in your extremities, development of fevers or chills, loss of consciousness, inability to tolerate food or fluids, or any other concerns. I have sent medications to your pharmacy. Please take these medications as prescribed. You can also take tylenol 6 hours as needed for pain or use lidocaine patches. - Post Discharge Activity
[2019-04-28] MEDS ORDERED: diazePAM 5 MG TABLET PO ONE (08:40)
[2019-04-28] MEDS ORDERED: LIDOCAINE 5% TOPICAL PATCH TP ONE (08:40)
[2019-04-28] MEDS ORDERED: METHOCARBAMOL 500 MG TABLET PO ONE (08:40)
--- NOTE | 2019-04-28 09:25 | PDOC ---
Attending Attestation - Resident Resident Name: Shantal Santana - ED Attending Attestation I have performed the following: I have examined & evaluated the patient, The case was reviewed & discussed with the resident, I agree w/resident's findings & plan, Exceptions are as noted - HPI HPI: 04/28/19 09:22 83 M with h/o DM, HLD, asthma, and AFib (on xarelto) presenting to ED with L lower back pain x 2 weeks. Pt states that it started as a mild pain. Denies any inciting injury or fall. The pain acutely worsened last night. Pt denies any radiation of pain down his leg or to his abdomen. Denies dysuria. Denies F/C. Denies weakness/numbness in his legs or incontinence. Pt states the pain is worse with bending over and turning. Denies abdominal pain. Denies CP/SOB. - Physicial Exam PE: 04/28/19 09:23 "GENERAL: Awake, alert, and fully oriented, in no acute distress. HEAD: No signs of trauma EYES: PERRLA, EOMI, sclera anicteric, conjunctiva clear ENT: Auricles normal inspection, hearing grossly normal, nares patent, oropharynx clear without exudates. Moist mucosa NECK: Nontender, no stepoffs, Normal ROM, supple, no lymphadenopathy, JVD, or masses LUNGS: Breath sounds equal, clear to auscultation bilaterally. No wheezes, and no crackles HEART: Regular rate and rhythm, normal S1 and S2, no murmurs, rubs or gallops ABDOMEN: Soft, nontender, normoactive bowel sounds. No guarding, no rebound. No masses EXTREMITIES: + equal pulses bilaterally, Normal range of motion, no edema. No clubbing or cyanosis. No cords, erythema, or tenderness NEUROLOGICAL: Cranial nerves II through XII intact. 5/5 strength and sensation in all extremities, Normal speech, normal gait, normal cerebellar function SKIN: Warm, Dry, normal turgor, no rashes or lesions noted. BACK: + L lumbar paraspinal TTP, no stepoffs - Medical Decision Making 04/28/19 09:24 83 M with L lower back pain. + pain with straight leg raise on L side. Suspect sciatic nerve pain vs lumbar radiculopathy. No CVAT to suggest renal colic. No abdominal tenderness or masses, normal distal pulses. Low suspicion for vascular emergency. - Pain control - UA 04/28/19 11:13 UA wnl Bedside US reveals normal aorta, normal kidneys Pt is well appearing, with normal vitals. Clinically stable for DC at this time. I discussed the physical exam findings, ancillary test results and final diagnoses with the patient. I answered all of the patient's questions. The patient was satisfied with the care received and felt comfortable with the discharge plan and treatment plan. The patient agrees to follow up with the primary care physician within 24-72 hours.
[2019-04-28] MEDS ORDERED: diazePAM 5 MG TABLET ONE (10:01)
[2019-04-28] MEDS ORDERED: METHOCARBAMOL 500 MG TABLET ONE (10:01)
[2019-04-28] MEDS ORDERED: LIDOCAINE 5% TOPICAL PATCH ONE (10:02)
[2019-04-28 10:39] VITALS: BP 133/56; PULSE 69; TEMP 97.5
[2019-04-28 11:05] LABS: PH,URINE 6.5 (5.0-8.0); URINE APPEARANCE CLEAR; URINE BILIRUBIN NEGATIVE (NEGATIVE); URINE COLOR YELLOW; URINE GLUCOSE (UA) NEGATIVE (NEGATIVE); URINE KETONE NEGATIVE (NEGATIVE); URINE LEUK ESTERASE NEGATIVE (NEGATIVE); URINE NITRITE NEGATIVE (NEGATIVE); URINE PROTEIN NEGATIVE (NEGATIVE); URINE UROBILINOGEN 0.2 mg/dL (0.2-1.0)
[2019-04-28] MEDS ORDERED: LIDOCAINE PATCH REMOVAL MC SCH (22:00)
== END 2019-04-28 11:49 | disposition home or self-care (01) ==
LOC: JER 07:53
DX: M62.830 Muscle spasm of back (principal); M54.5 Low back pain; E11.9 Type 2 diabetes mellitus without complications; E78.5 Hyperlipidemia, unspecified; I48.91 Unspecified atrial fibrillation; Z79.01 Long term (current) use of anticoagulants; J45.909 Unspecified asthma, uncomplicated
CPT/HCPCS: 81003; 87086; 99283-25

== ENCOUNTER 2019-06-05 13:19 | Inpatient (IN) | payer OTHER ==
--- NOTE | 2019-06-05 13:55 | PDOC ---
Documentation entered by Rashi Castro SCRIBE, acting as scribe for Lili Arredondo MD. Lili Arredondo MD: This documentation has been prepared by the Matthew garcia Daniel, SCRIBE, under my direction and personally reviewed by me in its entirety. I confirm that the documentation accurately reflects all work, treatment, procedures, and medical decision making performed by me. Attending Attestation - Resident Resident Name: Oliver Chapman - ED Attending Attestation I have performed the following: I have examined & evaluated the patient, The case was reviewed & discussed with the resident, I agree w/resident's findings & plan - HPI HPI: 06/05/19 14:40 The patient is an 83 year old male with a past medical history of afib (xarelto) , asthma, diabetes, and HLD here today for evaluation of shortness of breath. The patient reports that he has had shortness of breath and cough for the past 2 years which became worse in the past few weeks. He states that he went to urgent care and was told to come to the ER due to a concerning EKG which showed new A-flutter. Patient denies headache, lightheadedness. Denies fever, chills. Denies chest pain. Denies nausea, vomiting, diarrhea, abdominal pain. Allergies: NKA - Physicial Exam PE: 06/05/19 14:23 Agree with the resident's HPI and PE as documented in the electronic medical record. NAD, well appearing, EOMI, PERRL, nl conjunctiva, anicteric; neck supple. lungs with b/l crackles in lower bases, irregularly irregular, no murmur. abdomen soft nontender. no rebound, guarding. Back nontender. DAVISON x4, no focal neuro deficits. bilateral peripheral edema. normal color for ethnicity, WWP. - Medical Decision Making 06/05/19 14:24 Vital Signs Temp Pulse Resp BP Pulse Ox 97.8 F 77 20 144/79 98 06/05/19 13:35 06/05/19 13:35 06/05/19 13:35 06/05/19 13:35 06/05/19 13:35 DDx SOB: ACS, PE, PTX, CHF, COPD exac, asthma exacerbation. pulmonary edema, pleurisy, pneumonia, viral syndrome. effusion. anemia, electrolyte/metabolic derangements. Laboratory results are within normal limits, no evidence of anemia. Coags are normal, creatinine is 1.4 GFR is relatively preserved otherwise unremarkable. Troponin is negative. bnp indeterminate, but does not appear overloaded also based on pocus Appears more likely asthma, unlikely CHF or fluid overload/pulmonary edema given no evidence of alveolar interstitial syndrome on ultrasound. dimer_positive when age adjusted CTA to eval for PE +trop elevated, treat as nstemi and cards eval, serial ekg/trops, stress testing /provacative testing. admit for SOB/likely asthma exacerbation. given duonebs and steroids. medical management. 06/08/19 07:34 06/08/19 07:35 Heart Score/ECG Review #1 ECG reviewed & interpreted by me at: 13:30 General ECG Interpretation: Normal Rate, Normal Intervals Compared to previous ECG there are: Changes noted 06/05/19 13:55 EKG Atrial flutter with variable AV block, normal rate at 85 bpm, right bundle branch block noted no interval abnormalities, narrow QRS, ST and T wave segments and morphology normal. Nonspecific T wave abnormalities prior EKG with sinus rhythm, RBBB 06/05/19 13:56 Procedures - Bedside Ultrasound Bedside Ultrasound: Cardiac Remarks: 06/05/19 15:58 POCUS echo and thoracic exam performed and documented/saved, indication includes chest pain/dyspnea. views obtained (PSLA, PSS, A4, SX, IVC, bilateral lung oliver). Findings include normal EF on visual estimation, no pericardial or pleural effusion, primarily A lines, small IVC with inspiratory collapse. Normal aortic root <4cm. RV<LV. Impression: no acute findings
--- NOTE | 2019-06-05 14:02 | PDOC ---
History of Present Illness - General Chief Complaint: Shortness of Breath Stated Complaint: ALTERED MENTAL STATUS Time Seen by Provider: 06/05/19 13:29 - History of Present Illness Initial Comments: Mr. Wilson is a 83 y/o male with PMH significant for a-fib, asthma, DM, HTN, HLD sent in by urgent care for a-flutter on EKG. Reports chronic cough and shortness of breath that is present at rest and worse on exertion over the past couple of years. Denies chest pain. Denies fever/chills. Denies abdominal pain, denies leg swelling, denies urinary symptoms/changes in bowel movements. Not on home O2. Past History - Past Medical History Allergies/Adverse Reactions: Allergies Allergy/AdvReac Type Severity Reaction Status Date / Time No Known Allergies Allergy Verified 06/05/19 13:35 Home Medications: Ambulatory Orders Atorvastatin Calcium [Lipitor] 10 mg PO HS 04/21/19 Linaclotide [Linzess] 290 mcg PO DAILY 04/21/19 Metformin HCl [Glucophage] 1,000 mg PO BID 04/21/19 Montelukast Sodium [Singulair] 10 mg PO DAILY 04/21/19 Oxybutynin Chloride [Oxybutynin Chloride ER] 5 mg PO DAILY 04/21/19 Repaglinide 0.5 mg PO BID 04/21/19 Sitagliptin Phosphate [Januvia] 100 mg PO DAILY 04/21/19 Rivaroxaban [Xarelto -] 20 mg PO HS 04/23/19 Methocarbamol [Robaxin -] 500 mg PO BID #10 tablet 04/28/19 Telmisartan 40 mg PO BID 04/28/19 Cyclobenzaprine HCl [Flexeril -] 10 mg PO HS PRN 06/05/19 Indomethacin [Indocin -] 50 mg PO TID 06/05/19 Asthma: Yes Cardiac Disorders: Yes (TAKES XARELTO) COPD: No Diabetes: Yes Hypercholesterolemia: Yes - Immunization History Immunization Up to Date: Yes - Psycho Social/Smoking Cessation Hx Smoking History: Never smoked Have you smoked in the past 12 months: No Hx Alcohol Use: Yes (socially) Drug/Substance Use Hx: No Substance Use Type: None Hx Substance Use Treatment: No Review of Systems - Review of Systems Comments:: ROS GENERAL/CONSTITUTIONAL: No fever or chills. No weakness._ HEAD, EYES, EARS, NOSE AND THROAT: No change in vision. No change in hearing. No sore throat._ CARDIOVASCULAR: No chest pain. Reports shortness of breath. RESPIRATORY: Reports cough and hemoptysis. GASTROINTESTINAL: No nausea, vomiting, diarrhea or constipation._ GENITOURINARY: No dysuria, frequency, or change in urination._ MUSCULOSKELETAL: No joint or muscle swelling or pain. No neck or back pain._ SKIN: No rash_ NEUROLOGIC: No headache, vertigo, loss of consciousness, or change in strength/ sensation._ ENDOCRINE: No increased thirst. No abnormal weight change_ HEMATOLOGIC/LYMPHATIC: No anemia, easy bleeding, or history of blood clots._ ALLERGIC/IMMUNOLOGIC: No hives or skin allergy._ *Physical Exam - Vital Signs Last Vital Signs Temp Pulse Resp BP Pulse Ox 97.8 F 77 20 144/79 98 06/05/19 13:35 06/05/19 13:35 06/05/19 13:35 06/05/19 13:35 06/05/19 13:35 - Physical Exam Comments: GENERAL: Awake, alert, and oriented to person/place/time, in no acute distress_ HEAD: No signs of trauma, normocephalic, atraumatic _ EYES: PERRLA, EOMI, sclera anicteric, conjunctiva clear_ ENT: Hearing grossly normal, nares patent, oropharynx clear without exudates. No uvular deviation. Moist mucosa_ NECK: Normal ROM, supple, no lymphadenopathy, JVD, or masses_ LUNGS: No distress, speaks in full sentences, mild bibasilar crackles. Diffuse wheezes in lower lung oliver. HEART: Irregular, normal S1 and S2, no murmurs appreciated, peripheral pulses normal and equal bilaterally._ ABDOMEN: Soft, obese, protuberant, nontender. No guarding, no rebound. No masses _ EXTREMITIES: Normal inspection, Normal range of motion, no edema. No clubbing or cyanosis. NEUROLOGICAL: Cranial nerves II through XII grossly intact. Normal speech, normal gait, no focal sensorimotor deficits _ SKIN: Warm, Dry, normal turgor, no rashes or lesions noted. ED Treatment Course - LABORATORY CBC & Chemistry Diagram: 06/06/19 06:20 06/06/19 06:20 Medical Decision Making - Medical Decision Making 83M with hx of asthma, a-fib, DM, HTN, HLD, presenting with chronic cough and shortness of breath that has worsened over the past several weeks. SOB at rest, worse on exertion. Not on home O2. Went to urgent care today and sent in for a- flutter on EKG. DDx is broad and includes asthma exacerbation vs new onset CHF vs other cardiac or pulmonary etiology. Plan to obtain CBC, CMP, BNP, CXR, EKG, trop, coags. 06/05/19 14:00 EKG shows 85 bpm, atrial flutter, RBBB, QTc 461. 06/05/19 1430 Bedside echo does not show pericardial effusion, LV function appears normal, positive lung sliding, no pleural effusion. 06/05/19 1700 Labs reviewed. D-dimer mildly elevated. BNP mildly elevated. Will order CTA chest. 06/05/19 19:01 Repeat EKG shows 119 bpm, a-fib, RBBB, QTc 537. 06/05/19 19:29 CTA negative for PE. Plan to admit for new onset atrial flutter. Discharge - Discharge Information Problems reviewed: Yes Clinical Impression/Diagnosis: Atrial flutter Qualifiers: Atrial flutter type: unspecified Qualified Code(s): I48.92 - Unspecified atrial flutter Condition: Stable - Admission Yes - Follow up/Referral - Patient Discharge Instructions - Post Discharge Activity
[2019-06-05 14:55] LABS: BASO % 0.4 % (0-2.0); EOS % 5.1 % (0-4.5); HEMATOCRIT 38.6 % (35.4-49); HEMOGLOBIN 12.5 GM/dL (11.7-16.9); LYMPH % 20.2 % (8-40); MCH 27.7 pg (25.7-33.7); MCHC 32.4 g/dl (32.0-35.9); MEAN CELL VOLUME 85.4 fl (80-96); MEAN PLT VOLUME 6.9 fl (7.5-11.1); MONO % 9.5 % (3.8-10.2); NEUT % 64.8 % (42.8-82.8); PLATELET COUNT 298 K/MM3 (134-434); RBC 4.52 M/mm3 (4.00-5.60); RDW 14.7 % (11.9-15.9); WHITE BLOOD COUNT 8.6 K/mm3 (4.0-10.0)
[2019-06-05 15:09] LABS: INR 1.09 (0.83-1.09); PROTHROMBIN TIME (PATIENT) 12.9 SEC (9.7-13.0)
[2019-06-05 15:11] LABS: ACTIVATED PTT 36.4 SECONDS (25.2-36.5)
[2019-06-05 15:21] LABS: ALBUMIN 3.5 g/dl (3.4-5.0); BILIRUBIN,TOTAL 0.4 mg/dL (0.2-1); BLOOD UREA NITROGEN 14.2 mg/dL (7-18); CALCIUM 8.8 mg/dL (8.5-10.1); CREATININE 1.4 mg/dL (0.55-1.3); N-TERMINAL BNP 677.8 pg/ml (5-450); POTASSIUM 5.1 mmol/L (3.5-5.1); TOT PROT 7.4 g/dl (6.4-8.2)
--- NOTE | 2019-06-05 15:31 | EKG ---
Test Reason : Blood Pressure : / mmHG Vent. Rate : 085 BPM Atrial Rate : 308 BPM P-R Int : 000 ms QRS Dur : 134 ms QT Int : 388 ms P-R-T Axes : 085 042 055 degrees QTc Int : 461 ms ATRIAL FLUTTER WITH VARIABLE A-V BLOCK RIGHT BUNDLE BRANCH BLOCK ABNORMAL ECG WHEN COMPARED WITH ECG OF 21-APR-2019 17:38, ATRIAL FLUTTER HAS REPLACED SINUS RHYTHM Confirmed by RADHAMES GARCIA, MARINA ([id number]) on 06/05/2019 3:31:41 PM Referred By: Confirmed By:MARINA RICCI MD
[2019-06-05] MEDS ORDERED: methylPREDNISolone NA SUCC 125 MG/2 ML VIAL IVPUSH ONE (15:54)
[2019-06-05] MEDS ORDERED: methylPREDNISolone NA SUCC 125 MG/2 ML VIAL ONE (16:16)
[2019-06-05] MEDS ORDERED: ALBUTEROL SO4 2.5/IPRATROPIUM 0.5 INH SOL 3 ML VIAL.NEB. NEB ONE ×2 (16:16→16:24)
[2019-06-05] MEDS: ALBUTEROL SO4 2.5/IPRATROPIUM 0.5 INH SOL 3 ML VIAL.NEB. NEB SCH ×3 (16:20→16:45)
--- NOTE | 2019-06-05 19:48 | PN ---
Teaching Attending Note Name of Resident: Christina Fragoso ATTENDING PHYSICIAN STATEMENT I saw and evaluated the patient. I reviewed the resident's note and discussed the case with the resident. I agree with the resident's findings and plan as documented. SUBJECTIVE: Patient is an 83 year old man with a PMH of Afib (on xarelto), Obstructive sleep apnea, Left total knee replacement, Left shoulder surgery, Asthma, NIDDM and HLD sent from Urgent Care with EKG showing A-flutter. The patient reports that he has had shortness of breath and cough for the past 2 years which became worse in the past few weeks. Says he coughed up blood stained sputum once. He states that he went to urgent care and was told to come to the ER due to a concerning EKG which showed new A-flutter. Patient was recently hospitalized for right foot cellulitis at [facility] and was on a flight from [place] to [facility] in early April 2019. Has been on indocin for several weeks started at an [facility] for presumed gout. Patient denies headache, lightheadedness. Denies fever, chills. Denies chest pain. Denies nausea, vomiting, diarrhea, abdominal pain. Denies tobacco, alcohol or illicit drug use. Has FH of dementia. OBJECTIVE: Alert Vital Signs Period Temp Pulse Resp BP Sys/Miguel Pulse Ox Last 24 Hr 97.5 F-97.8 F 71-119 18-20 137-160/65-79 92-98 HEENT: No Jaundice, eye redness or discharge, PERRLA, EOMI. Normocephalic, atraumatic. External ears are normal and hearing is grossly intact. No nasal discharge. Neck: Supple, nontender. No palpable adenopathy or thyromegaly. No JVD Chest: Good effort. Clear to auscultation and percussion. Heart: Regular. No S3, rub or murmur Abdomen: Not distended, soft, nontender and no HSM. No rebound or guarding. Normal bowel sounds. Ext: Peripheral pulses intact. No leg edema. +Varicose veins in LE. Skin: Warm and dry. No petechiae, rash or ecchymosis. Neuro: Alert. Oriented x3. CN 2-12 grossly intact. Sensation grossly intact in all four extremities and DTR are symmetric. Psych: Appropriate mood and affect. Good insight. Home Medications Medication Instructions Recorded Atorvastatin Calcium [Lipitor] 10 mg PO HS 04/21/19 Linaclotide [Linzess] 290 mcg PO BID 04/21/19 Metformin HCl [Glucophage] 1,000 mg PO BID 04/21/19 Montelukast Sodium [Singulair] 10 mg PO BID 04/21/19 Oxybutynin Chloride [Oxybutynin 5 mg PO BID 04/21/19 Chloride ER] Repaglinide 0.5 mg PO DAILY 04/21/19 Sitagliptin Phosphate [Januvia] 100 mg PO DAILY 04/21/19 Rivaroxaban [Xarelto -] 20 mg PO HS 04/23/19 Methocarbamol [Robaxin -] 500 mg PO BID #10 tablet 04/28/19 Telmisartan 40 mg PO BID 04/28/19 Cyclobenzaprine HCl [Flexeril -] 10 mg PO HS 06/05/19 Indomethacin [Indocin -] 50 mg PO TID 06/05/19 Abnormal Lab Results 06/05/19 06/05/19 06/05/19 14:30 14:30 14:38 MPV 6.9 L Eosinophils % 5.1 H D D-Dimer 966 H Anion Gap 7 L Creatinine 1.4 H Random Glucose 182 H B-Natriuretic Peptide 677.8 H ASSESSMENT AND PLAN: 1. Asthma exacerbation - Patient got duonebs in the ER and he improved. Will continue xopenex, symbicort, singulair, solumedrol, MgSO4, azithromycin, supplemental O2 and monitor peak flow. Check uric acid level, stop NSAID and give Protonix PO. EKG shows Afib with rate of 119, IRBBB and no significant ST- T wave changes. Will consult cardiology because in the ER patient's heart rate was changing from bradycardia to tachycardia with out any therapeutic intervention. Also he is not on any rate control agent at home. CTA chest didnot show pulmonary embolism and no acute abnormality on CXR. Will continue comprehensive care for all of patients comorbid conditions including Xarelto for Afib. 2. DM For now, we will hold the home diabetes drugs and implement sliding scale insulin regimen. Provide comprehensive diabetes care with patient teaching and counseling about the importance of adherence to prescribed diabetes regimen, euglycemia, eye care and foot care. 3. CKD - Has risk factors for CKD. Will consult nephrology and avoid nephrotoxic agents such as NSAIDS, aminoglycosides, contrast dyes and certain Alternative medicine products. 4. Obesity Counseled on the risks associated with obesity. Will provide patient all the necessary assistance, counseling and positive reinforcement to facilitate weight loss. Consult internal communications writer. 5. Uncontrolled hypertension - Restart suitable outpatient antihypertensive drugs and add amlodipine 5 mg po q am. Continue to revise regimen to ensure [id number] excellent BP control and corporate counselor patient on the injurious effects of uncontrolled hypertension. Nonpharmacologic measures to control hypertension like weight loss, salt restriction and exercise discussed. Importance of adherence to treatment regimen and attainment of normotension emphasized. 6. DVT prophylaxis - On xarelto 7. Advance directives - Full code
[2019-06-05] MEDS ORDERED: AZITHROMYCIN IVPB 500 MG/250 ML BAG IVPB ONE ×2 (22:17→22:37)
[2019-06-05] MEDS ORDERED: MAGNESIUM SULF 50% (8.12 MEQ/2 ML-1 GM VIAL) IVPB ONE (22:19)
--- NOTE | 2019-06-05 22:30 | HP ---
CHIEF COMPLAINT: SOB PCP: Dr. Hahn HISTORY OF PRESENT ILLNESS: Mr. Wilson is an 83 year old man with a history of diabetes, HTN, HLD, asthma, afib (on Xarelto), obesity and SCHUYLER, who presents to the ED with several weeks of coughing and SOB accompanied by 1 episode of hemoptysis last night. Per the patient, he had been coughing up phlegm and last night he noticed there was blood mixed with the phlegm. The patient reported the episode resolved on its own but he agreed to go to an urgent care to have it investigated on the request of his and daughter. At the urgent care it was noted that the patient was in aflutter (per the daughter) and they recommended he come to the ED. Of note the patient had recently started taking indomethacin 50mg TID for the last two weeks. He states that he was recently hospitalized at [facility] for treatment of LE cellulits. After completing the antibiotics course his foot was still bothering him so he went to an urgent care center. There he was told the most likely cause of his symptoms was gout and he was started on indomethacin TID. The patient denies CP, heart palpiations , abdominal pain, N/V, constipation, diarrhea, swelling in the lower extremities , feeling feverish, chills, night sweats or recent weight loss. ER course was notable for: (1) Duonebs and solumedrol given in ED (2) EKG showing tachycardia (119) with Afib with RVR and old RBBB, 2nd EKG after medications showing HR 85 with aflutter and old RBBB. QTc 461 Recent Travel: traveled to [facility] for 6 weeks over the summer, returned Apr 14 PAST MEDICAL HISTORY: iabetes, HTN, HLD, asthma, afib (on Xarelto), obesity and SCHUYLER (per the patient's daughter he had sleep study and was recommended to use BiPAP but patient refused, he villeda not use any time of home O2 or BiPAP currently ). PAST SURGICAL HISTORY: L knee replacement and R shoulder surgery Social History: Smoking: denies, was never a smoker Alcohol: socially, sometimes has 1/2 shot of liquor with lunch Drugs: denies Allergies No Known Allergies Allergy (Verified 06/05/19 13:35) HOME MEDICATIONS: Home Medications Medication Instructions Recorded Atorvastatin Calcium [Lipitor] 10 mg PO HS 04/21/19 Linaclotide [Linzess] 290 mcg PO BID 04/21/19 Metformin HCl [Glucophage] 1,000 mg PO BID 04/21/19 Montelukast Sodium [Singulair] 10 mg PO BID 04/21/19 Oxybutynin Chloride [Oxybutynin 5 mg PO BID 04/21/19 Chloride ER] Repaglinide 0.5 mg PO DAILY 04/21/19 Sitagliptin Phosphate [Januvia] 100 mg PO DAILY 04/21/19 Rivaroxaban [Xarelto -] 20 mg PO HS 04/23/19 Methocarbamol [Robaxin -] 500 mg PO BID #10 tablet 04/28/19 Telmisartan 40 mg PO BID 04/28/19 Cyclobenzaprine HCl [Flexeril -] 10 mg PO HS 06/05/19 Indomethacin [Indocin -] 50 mg PO TID 06/05/19 REVIEW OF SYSTEMS CONSTITUTIONAL: Absent: fever, chills, diaphoresis, generalized weakness, malaise, loss of appetite, weight change HEENT: Absent: rhinorrhea, nasal congestion, throat pain, throat swelling, difficulty swallowing, mouth swelling, ear pain, eye pain, visual changes CARDIOVASCULAR: Absent: chest pain, syncope, palpitations, irregular heart rate, lightheadedness , peripheral edema RESPIRATORY: cough, shortness of breath, hemoptysis Absent: , dyspnea with exertion, orthopnea, wheezing, stridor, GASTROINTESTINAL: Absent: abdominal pain, abdominal distension, nausea, vomiting, diarrhea, constipation, melena, hematochezia GENITOURINARY: Absent: dysuria, frequency, urgency, hesitancy, hematuria, flank pain, genital pain MUSCULOSKELETAL: Absent: myalgia, arthralgia, joint swelling, back pain, neck pain SKIN: Absent: rash, itching, pallor HEMATOLOGIC/IMMUNOLOGIC: Absent: easy bleeding, easy bruising, lymphadenopathy, frequent infections ENDOCRINE: Absent: unexplained weight gain, unexplained weight loss, heat intolerance, cold intolerance NEUROLOGIC: Absent: headache, focal weakness or paresthesias, dizziness, unsteady gait, seizure, mental status changes, bladder or bowel incontinence PSYCHIATRIC: Absent: anxiety, depression, suicidal or homicidal ideation, hallucinations. PHYSICAL EXAMINATION Vital Signs - 24 hr 06/05/19 06/05/19 06/05/19 13:35 17:00 18:56 Temperature 97.8 F 97.5 F L Pulse Rate 77 Pulse Rate [ 77 71 119 H Left Radial] Respiratory 20 18 20 Rate Blood Pressure 149/77 Blood Pressure 144/79 152/65 137/69 [Right Arm] O2 Sat by Pulse 98 94 L 92 L Oximetry (%) 06/05/19 19:16 Temperature 97.6 F Pulse Rate 116 H Pulse Rate [ 116 H Left Radial] Respiratory 19 Rate Blood Pressure Blood Pressure 160/74 [Right Arm] O2 Sat by Pulse 95 Oximetry (%) GENERAL: Awake, alert, and fully oriented, in no acute distress, breathing comfortably on RA, s/p treatment with duonebs and solumedrol. HEAD: Normal with no signs of trauma. EYES: Pupils equal, round and reactive to light, extraocular movements intact, sclera anicteric, conjunctiva clear. No lid lag. EARS, NOSE, THROAT: Ears normal, nares patent, oropharynx clear without exudates. Moist mucous membranes. NECK: Normal range of motion, supple without lymphadenopathy, JVD, or masses. LUNGS: Breath sounds equal, clear to auscultation bilaterally. No wheezes, and no crackles. No accessory muscle use. HEART: Regular rate and irregularly irregular rhythm, normal S1 and S2 without murmur, rub or gallop. HR monitor was reading the pt was becoming bradycardic to ~30 and then incrasing back to ~112 within a few seconds. ABDOMEN: Soft, nontender, obese but not distended, normoactive bowel sounds, no guarding, no rebound, no masses. No hepatomegaly or splenomegaly. MUSCULOSKELETAL: Normal range of motion at all joints. No bony deformities or tenderness. No CVA tenderness. UPPER EXTREMITIES: 2+ pulses, warm, well-perfused. No cyanosis. No clubbing. No peripheral edema. LOWER EXTREMITIES: 2+ pulses, warm, well-perfused. No calf tenderness. No peripheral edema, varicose veins present. NEUROLOGICAL: Cranial nerves II-XII intact. Normal speech. Normal gait. PSYCHIATRIC: Cooperative. Good eye contact. Appropriate mood and affect. SKIN: Warm, dry, normal turgor, no rashes or lesions noted, normal capillary refill. Laboratory Results - last 24 hr 06/05/19 06/05/19 06/05/19 14:30 14:30 14:30 WBC RBC Hgb Hct MCV MCH MCHC RDW Plt Count MPV Absolute Neuts (auto) Neutrophils % Lymphocytes % Monocytes % Eosinophils % Basophils % Nucleated RBC % PT with INR 12.90 INR 1.09 PTT (Actin FS) 36.4 D-Dimer 966 H Sodium 136 Potassium 5.1 Chloride 104 Carbon Dioxide 24 Anion Gap 7 L BUN 14.2 Creatinine 1.4 H Est GFR (CKD-EPI)AfAm 53.47 Est GFR (CKD-EPI)NonAf 46.13 Random Glucose 182 H Calcium 8.8 Total Bilirubin 0.4 AST 32 ALT 42 Alkaline Phosphatase 85 Creatine Kinase 195 Creatine Kinase Index 1.2 CK-MB (CK-2) 2.4 Troponin I 0.02 B-Natriuretic Peptide 677.8 H Total Protein 7.4 Albumin 3.5 06/05/19 14:38 WBC 8.6 RBC 4.52 Hgb 12.5 Hct 38.6 MCV 85.4 MCH 27.7 MCHC 32.4 RDW 14.7 Plt Count 298 MPV 6.9 L Absolute Neuts (auto) 5.5 Neutrophils % 64.8 Lymphocytes % 20.2 Monocytes % 9.5 Eosinophils % 5.1 H D Basophils % 0.4 Nucleated RBC % 0 PT with INR INR PTT (Actin FS) D-Dimer Sodium Potassium Chloride Carbon Dioxide Anion Gap BUN Creatinine Est GFR (CKD-EPI)AfAm Est GFR (CKD-EPI)NonAf Random Glucose Calcium Total Bilirubin AST ALT Alkaline Phosphatase Creatine Kinase Creatine Kinase Index CK-MB (CK-2) Troponin I B-Natriuretic Peptide Total Protein Albumin Imaging: CTA chest without evidence of pulmonary embolism and no acute abnormality on CXR ASSESSMENT/PLAN: Mr. Wilson is an 83 year old man with a history of diabetes, HTN, HLD, asthma, afib (on Xarelto), obesity and SCHUYLER, who presents to the ED with several weeks of coughing and SOB accompanied by 1 episode of hemoptysis last night. #Asthma exacerbation - patient received duonebs in ED and improved - Solu-medrol 40 q6h - Symbicort 80/4.5mcg BID - Singulair 10 HS - Azithromax 500 IVPB once - Azithromax 250 IVPB daily - Protonix PO daily - 2g MgSO4 - Supplemental O2 as needed - F/u peak flow #DM - hold the home diabetes drugs - SSI #CKD - Has risk factors for CKD. - Consider nephrology consult - D/C indomethicine and f/u uric acid level - avoid nephrotoxic agents such as NSAIDS, aminoglycosides, contrast dyes and certain Alternative medicine products. #HTN -poorly controlled as pt has come in hypertensive on last couple of admissions despite adhering to medication regimen - Hydrochlorothiazide 12.5 mg PO DAILY - Valsartan 160 mg PO BID - Consider adding Amlodipine 5 mg po QHS on discharge if patient remains hypertensive with the addition of a diuretic - Cardiology consult for recommendation on rate control agent given the patient becomes tachycardic but then also bradys down to ~30 without any therapeutic intervention. Also he is not on any rate control agent at home. - Will observe on telemetry overnight #FEN IVNS @ 42cc/h replete PRN Fat/chol/ Na restricted diet #PPx- DVT- cont home xarelto 20 mg PO DAILY GI- Protonix 40 PO DAILY #Dispo- admit to tele, full code Visit type - Emergency Visit Emergency Visit: Yes ED Registration Date: 06/05/19 Care time: The patient presented to the Emergency Department on the above date and was hospitalized for further evaluation of their emergent condition. - New Patient This patient is new to me today: Yes Date on this admission: 06/05/19 - Critical Care Critical Care patient: No ATTENDING PHYSICIAN STATEMENT I saw and evaluated the patient. I reviewed the resident's note and discussed the case with the resident. I agree with the resident's findings and plan as documented. SUBJECTIVE: OBJECTIVE: ASSESSMENT AND PLAN:
[2019-06-05] MEDS ORDERED: VALSARTAN 80 MG TABLET (UD) ONE (22:37)
[2019-06-05] MEDS ORDERED: methylPREDNISolone NA SUCC 40 MG/1 ML VIAL ONE (22:37)
[2019-06-05] MEDS ORDERED: MAGNESIUM SULF 50% (8.12 MEQ/2 ML-1 GM VIAL) ONE (22:43)
[2019-06-05] MEDS: SODIUM CHLORIDE 1,000 ML IV SCH (23:19)
[2019-06-05] MEDS: MONTELUKAST NA 10 MG TABLET PO SCH (23:19)
[2019-06-05] MEDS: methylPREDNISolone NA SUCC 40 MG/1 ML VIAL IVPUSH SCH (23:20)
[2019-06-05] MEDS: BUDESONIDE/FORMETEROL FUMARATE 80/4.5 mcg INHALER IH SCH (23:20)
[2019-06-05] MEDS: VALSARTAN 160 MG TABLET (UD) PO SCH (23:20)
--- NOTE | 2019-06-05 23:43 | CON.CARD ---
Consult Consult Specialty:: Cardiology - History of Present Illness History of Present Illness: Patient is an 83 year old man with a PMH of Afib (on xarelto), Obstructive sleep apnea, Left total knee replacement, Left shoulder surgery, Asthma, NIDDM and HLD sent from Urgent Care with EKG showing A-flutter. The patient reports that he has had shortness of breath and cough for the past 2 years which became worse in the past few weeks. Says he coughed up blood stained sputum once. He states that he went to urgent care and was told to come to the ER due to a concerning EKG which showed new A-flutter. Patient was recently hospitalized for right foot cellulitis at [facility] and was on a flight from [place] to [facility] in early April 2019. Has been on indocin for several weeks started at an [facility] for presumed gout. Patient denies headache, lightheadedness. Denies fever, chills. Denies chest pain. Denies nausea, vomiting, diarrhea, abdominal pain. Denies tobacco, alcohol or illicit drug use. Has FH of dementia. - History Source History Provided By: Patient, Medical Record - Past Medical History Cardio/Vascular: Yes: AFIB, HTN, Hyperlipdemia Endocrine: Yes: Diabetes Mellitus - Alcohol/Substance Use Hx Alcohol Use: Yes (socially) - Smoking History Smoking history: Never smoked Have you smoked in the past 12 months: No Home Medications - Allergies Allergies/Adverse Reactions: Allergies Allergy/AdvReac Type Severity Reaction Status Date / Time No Known Allergies Allergy Verified 06/05/19 13:35 - Home Medications Home Medications: Ambulatory Orders Atorvastatin Calcium [Lipitor] 10 mg PO HS 04/21/19 Linaclotide [Linzess] 290 mcg PO DAILY 04/21/19 Metformin HCl [Glucophage] 1,000 mg PO BID 04/21/19 Montelukast Sodium [Singulair] 10 mg PO DAILY 04/21/19 Oxybutynin Chloride [Oxybutynin Chloride ER] 5 mg PO DAILY 04/21/19 Repaglinide 0.5 mg PO BID 04/21/19 Sitagliptin Phosphate [Januvia] 100 mg PO DAILY 04/21/19 Rivaroxaban [Xarelto -] 20 mg PO HS 04/23/19 Methocarbamol [Robaxin -] 500 mg PO BID #10 tablet 04/28/19 Telmisartan 40 mg PO BID 04/28/19 Cyclobenzaprine HCl [Flexeril -] 10 mg PO HS PRN 06/05/19 Indomethacin [Indocin -] 50 mg PO TID 06/05/19 Review of Systems - Review of Systems Constitutional: reports: No Symptoms Eyes: reports: No Symptoms HENT: reports: No Symptoms Neck: reports: No Symptoms Cardiovascular: reports: Shortness of Breath Respiratory: reports: SOB, SOB on Exertion Gastrointestinal: reports: No Symptoms Genitourinary: reports: No Symptoms Breasts: reports: No Symptoms Reported Musculoskeletal: reports: No Symptoms Integumentary: reports: No Symptoms Neurological: reports: No Symptoms Endocrine: reports: No Symptoms Hematology/Lymphatic: reports: No Symptoms Psychiatric: reports: No Symptoms Vital Signs: Vital Signs Temperature 97.6 F 06/05/19 19:16 Pulse Rate 116 H 06/05/19 19:16 Respiratory Rate 19 06/05/19 19:16 Blood Pressure 160/74 06/05/19 19:16 O2 Sat by Pulse Oximetry (%) 95 06/05/19 19:16 Constitutional: Yes: Well Nourished, No Distress, Calm Eyes: Yes: WNL, Conjunctiva Clear, EOM Intact HENT: Yes: WNL, Atraumatic, Normocephalic Neck: Yes: WNL, Supple, Trachea Midline Respiratory: Yes: Diminished Gastrointestinal: Yes: WNL, Normal Bowel Sounds Renal/: Yes: WNL Cardiovascular: Yes: Pulse Irregular Musculoskeletal: Yes: WNL Extremities: Yes: WNL Integumentary: Yes: WNL Neurological: Yes: WNL, Alert, Oriented ...Motor Strength: WNL Psychiatric: Yes: WNL, Alert, Oriented - Other Data Labs, Other Data: CBC, BMP 06/05/19 14:38 06/05/19 14:30 INR, PTT INR 1.09 (0.83-1.09) 06/05/19 14:30 Troponin, BNP 06/05/19 14:30 Troponin I 0.02 B-Natriuretic Peptide 677.8 H Troponin, BNP 06/05/19 14:30 Troponin I 0.02 B-Natriuretic Peptide 677.8 H Imaging - Results Chest X-ray: Image Reviewed (no i/e) EKG: Image Reviewed (a flutter) Problem List - Problems (1) Hemoptysis Code(s): R04.2 - HEMOPTYSIS (2) SCHUYLER (obstructive sleep apnea) Code(s): G47.33 - OBSTRUCTIVE SLEEP APNEA (ADULT) (PEDIATRIC) (3) FRED (acute kidney injury) Code(s): N17.9 - ACUTE KIDNEY FAILURE, UNSPECIFIED (4) Afib Code(s): I48.91 - UNSPECIFIED ATRIAL FIBRILLATION (5) Asthma Code(s): J45.909 - UNSPECIFIED ASTHMA, UNCOMPLICATED (6) Atelectasis Code(s): J98.11 - ATELECTASIS (7) Back muscle spasm Code(s): M62.830 - MUSCLE SPASM OF BACK (8) Cellulitis Code(s): L03.90 - CELLULITIS, UNSPECIFIED Qualifiers: Site of cellulitis: extremity Site of cellulitis of extremity: lower extremity Laterality: right Qualified Code(s): L03.115 - Cellulitis of right lower limb (9) Diabetes Code(s): E11.9 - TYPE 2 DIABETES MELLITUS WITHOUT COMPLICATIONS (10) HLD (hyperlipidemia) Code(s): E78.5 - HYPERLIPIDEMIA, UNSPECIFIED (11) Low back pain Code(s): M54.5 - LOW BACK PAIN Qualifiers: Chronicity: acute Back pain laterality: left Sciatica presence: unspecified whether sciatica present Qualified Code(s): M54.5 - Low back pain (12) Prophylactic measure Code(s): Z29.9 - ENCOUNTER FOR PROPHYLACTIC MEASURES, UNSPECIFIED Assessment/Plan 83 year old man with a PMH of Afib (on xarelto), Obstructive sleep apnea, Left total knee replacement, Left shoulder surgery, Asthma, NIDDM and HLD sent from Urgent Care with EKG showing A-flutter. Diagnosed wit COPD/CHF exacorbation plan as per pulmonary telemetry echo MIBI stress tets when stable
[2019-06-06 07:02] LABS: BASO % 0.4 % (0-2.0); HEMATOCRIT 35.8 % (35.4-49); HEMOGLOBIN 11.9 GM/dL (11.7-16.9); LYMPH % 9.1 % (8-40); MCHC 33.2 g/dl (32.0-35.9); MEAN CELL VOLUME 84.5 fl (80-96); MEAN PLT VOLUME 7.4 fl (7.5-11.1); NEUT % 89.5 % (42.8-82.8); PLATELET COUNT 311 K/MM3 (134-434); RBC 4.24 M/mm3 (4.00-5.60); RDW 14.9 % (11.9-15.9); WHITE BLOOD COUNT 9.2 K/mm3 (4.0-10.0)
--- NOTE | 2019-06-06 07:29 | PN ---
Progress Note, Physician History of Present Illness: 83 year old man with a history of diabetes, HTN, HLD, asthma, afib (on Xarelto) , obesity and SCHUYLER, who presents to the ED with several weeks of coughing and SOB accompanied by 1 episode of hemoptysis. Went to urgent care it was noted that the patient was in aflutter (per the daughter) and they recommended he come to the ED. Of note the patient had recently started taking indomethacin 50mg TID for the last two weeks.Was recently hospitalized at [facility] for treatment of LE cellulits. The patient denies CP, heart palpiations, abdominal pain, N/V, constipation, diarrhea, swelling in the lower extremities, feeling feverish, chills, night sweats or recent weight loss. - Current Medication List Current Medications: Active Medications Azithromycin (Zithromax -) 250 mg PO DAILY [facility] Budesonide/Formoterol Fumarate (Symbicort 80/4.5mcg -) 2 puff IH BID [facility] Last Admin: 06/05/19 23:20 Dose: 2 puff Hydrochlorothiazide (Hctz -) 12.5 mg PO DAILY [facility] Sodium Chloride (Normal Saline -) 1,000 mls @ 42 mls/hr IV ASDIR [facility] Last Admin: 06/05/19 23:19 Dose: 42 mls/hr Methylprednisolone Sodium Succinate (Solu-Medrol -) 40 mg IVPUSH Q6H-IV [facility] Last Admin: 06/05/19 23:20 Dose: 40 mg Montelukast Sodium (Singulair -) 10 mg PO HS [facility] Last Admin: 06/05/19 23:19 Dose: 10 mg Pantoprazole Sodium (Protonix -) 40 mg PO DAILY [facility] Rivaroxaban (Xarelto) 20 mg PO DAILY@1800 [facility] Valsartan (Diovan -) 160 mg PO BID [facility] Last Admin: 06/05/19 23:20 Dose: 160 mg - Objective Vital Signs: Vital Signs Temperature 98.4 F 06/06/19 04:00 Pulse Rate 105 H 06/06/19 04:00 Respiratory Rate 18 06/06/19 04:00 Blood Pressure 127/62 06/06/19 04:00 O2 Sat by Pulse Oximetry (%) 95 06/06/19 01:28 Constitutional: Yes: Well Nourished, No Distress, Calm, Obese Eyes: Yes: WNL, Conjunctiva Clear, EOM Intact HENT: Yes: WNL, Atraumatic, Normocephalic Neck: Yes: WNL, Supple, Trachea Midline Cardiovascular: Yes: Pulse Irregular Respiratory: Yes: Diminished (at bases) Gastrointestinal: Yes: WNL, Normal Bowel Sounds, Soft, Abdomen, Obese ...Rectal Exam: Yes: Deferred Genitourinary: Yes: WNL Breast(s): Yes: WNL Musculoskeletal: Yes: WNL Extremities: Yes: WNL Edema: Yes Edema: LLE: 1+, RLE: Trace Peripheral Pulses WNL: Yes Integumentary: Yes: Venous Stasis Changes Neurological: Yes: WNL, Alert, Oriented ...Motor Strength: WNL Psychiatric: Yes: WNL Labs: INR, PTT INR 1.09 (0.83-1.09) 06/05/19 14:30 - ....Imaging Chest X-ray: Image Reviewed (CXR: no effusion/infiltrates) Cat Scan: Report Reviewed (CTA: no PE , cholesliathisis with fatty liver) Problem List - Problems (1) HTN (hypertension) Assessment/Plan: normotensive c/w valsartan Code(s): I10 - ESSENTIAL (PRIMARY) HYPERTENSION (2) Atrial flutter Assessment/Plan: AFib/flutter on tele periods of RVR with bradycardia continue to monitor on tele TTE pending MIBI pending appreciate cardiology consultation Code(s): I48.92 - UNSPECIFIED ATRIAL FLUTTER (3) Hemoptysis Assessment/Plan: single episode humidified O2 saline nebs Code(s): R04.2 - HEMOPTYSIS (4) SCHUYLER (obstructive sleep apnea) Assessment/Plan: formal sleep study as outpatient Code(s): G47.33 - OBSTRUCTIVE SLEEP APNEA (ADULT) (PEDIATRIC) (5) Afib Assessment/Plan: see above Code(s): I48.91 - UNSPECIFIED ATRIAL FIBRILLATION (6) Asthma Assessment/Plan: solumedrol/nebs/abx given in ED c/w duonebs and symbicort monitor off IV steroids CTA with acute pathology supplememtal O2 as needed c/w singular formal SCHUYLER evaluation as outpatient appreciate pulmonary consultation Code(s): J45.909 - UNSPECIFIED ASTHMA, UNCOMPLICATED (7) Diabetes Assessment/Plan: BGM ac/hc with novolog sliding scale diabetic diet Code(s): E11.9 - TYPE 2 DIABETES MELLITUS WITHOUT COMPLICATIONS (8) HLD (hyperlipidemia) Assessment/Plan: low fat/cholesterol c/w atorvastatin Code(s): E78.5 - HYPERLIPIDEMIA, UNSPECIFIED (9) Prophylactic measure Assessment/Plan: FEN no addituonal fluids needed c/w hctz lowfat/diabetic diet monitor electrolytes DVT c/w xatelto Dispo maintain on tele full code discharge planning Code(s): Z29.9 - ENCOUNTER FOR PROPHYLACTIC MEASURES, UNSPECIFIED Visit type - Emergency Visit Emergency Visit: Yes ED Registration Date: 06/05/19 Care time: The patient presented to the Emergency Department on the above date and was hospitalized for further evaluation of their emergent condition. - New Patient This patient is new to me today: Yes Date on this admission: 06/06/19 - Critical Care Critical Care patient: No - Discharge Referral Referred to [facility] No
[2019-06-06 07:35] LABS: ALBUMIN 3.7 g/dl (3.4-5.0); BILIRUBIN,TOTAL 0.5 mg/dL (0.2-1); BLOOD UREA NITROGEN 19.7 mg/dL (7-18); CALCIUM 8.8 mg/dL (8.5-10.1); CREATININE 1.4 mg/dL (0.55-1.3); MAGNESIUM 2.3 mg/dL (1.8-2.4); PHOSPHOROUS 2.7 mg/dL (2.5-4.9); POTASSIUM 5.1 mmol/L (3.5-5.1); TOT PROT 7.7 g/dl (6.4-8.2); URIC ACID 7.6 mg/dL (2.6-7.2)
[2019-06-06] MEDS ORDERED: PT OWN MED DRAWER 7, Y5N ONE ×2 (09:18→11:03)
[2019-06-06] MEDS: PANTOPRAZOLE 40 MG TABLET (FP) PO SCH (09:29)
[2019-06-06] MEDS: HYDROCHLOROTHIAZIDE 12.5 MG CAPSULE (FP) PO SCH (09:30)
[2019-06-06] MEDS: methylPREDNISolone NA SUCC 40 MG/1 ML VIAL IVPUSH SCH (09:30)
[2019-06-06] MEDS: VALSARTAN 160 MG TABLET (UD) PO SCH ×2 (09:30→22:30)
[2019-06-06] MEDS ORDERED: AZITHROMYCIN 250 MG TABLET PO SCH (10:00)
[2019-06-06] MEDS ORDERED: AZITHROMYCIN IVPB 500 MG/250 ML BAG IVPB SCH (10:00)
[2019-06-06] MEDS: BUDESONIDE/FORMETEROL FUMARATE 80/4.5 mcg INHALER IH SCH ×2 (11:05→22:32)
--- NOTE | 2019-06-06 12:33 | CON.PULM ---
Consult Consult Specialty:: PULM/CCM Referred by:: Hospitalist Reason for Consultation:: Hemoptysis - History of Present Illness Chief Complaint: Hemoptysis History of Present Illness: 83 M , supposed asthma (Intermittent), diabetes, HTN, HLD, AFib (on Xarelto), obesity and SCHUYLER (refused PAP treatment). Admitted via the ER due to a few weeks of cough and progressive SOB. Patient reports 1 episode of blood tinged sputum (cannot quantify but seems small volume ). He said he rinsed his mouth with some hot water and there was no recurrence. His family urged him to get evaluated and he sent to an urgent care. At the urgent care it was noted that the patient was in aflutter (?) and he was sent to the ER. No fever or chills. No sick contacts or travel history. CTA: No PE / mild chronic changes / no acute process noted. - History Source History Provided By: Patient Limitations to Obtaining History: No Limitations - Past Medical History Cardio/Vascular: Yes: AFIB, HTN, Hyperlipdemia Pulmonary: Yes: Asthma, Bronchitis, Sleep Apnea. No: Cancer, COPD, O2 Dependent , Pneumonia, Previously Intubated, Pulmonary Embolus, Pulmonary Fibrosis Endocrine: Yes: Diabetes Mellitus - Alcohol/Substance Use Hx Alcohol Use: Yes (socially) - Smoking History Smoking history: Never smoked Have you smoked in the past 12 months: No Home Medications - Allergies Allergies/Adverse Reactions: Allergies Allergy/AdvReac Type Severity Reaction Status Date / Time No Known Allergies Allergy Verified 06/05/19 13:35 - Home Medications Home Medications: Ambulatory Orders Atorvastatin Calcium [Lipitor] 10 mg PO HS 04/21/19 Linaclotide [Linzess] 290 mcg PO DAILY 04/21/19 Metformin HCl [Glucophage] 1,000 mg PO BID 04/21/19 Montelukast Sodium [Singulair] 10 mg PO DAILY 04/21/19 Oxybutynin Chloride [Oxybutynin Chloride ER] 5 mg PO DAILY 04/21/19 Repaglinide 0.5 mg PO BID 04/21/19 Sitagliptin Phosphate [Januvia] 100 mg PO DAILY 04/21/19 Rivaroxaban [Xarelto -] 20 mg PO HS 04/23/19 Methocarbamol [Robaxin -] 500 mg PO BID #10 tablet 04/28/19 Telmisartan 40 mg PO BID 04/28/19 Cyclobenzaprine HCl [Flexeril -] 10 mg PO HS PRN 06/05/19 Indomethacin [Indocin -] 50 mg PO TID 06/05/19 Review of Systems - Review of Systems Constitutional: reports: Malaise. denies: Chills, Fever, Night Sweats Eyes: reports: No Symptoms HENT: reports: No Symptoms Neck: reports: No Symptoms Cardiovascular: reports: Shortness of Breath. denies: Chest Pain, Edema, Palpitations Respiratory: reports: Cough, Hemoptysis, Snoring, SOB on Exertion. denies: Orthopnea, PND, SOB, Wheezing Gastrointestinal: reports: No Symptoms Genitourinary: reports: No Symptoms Breasts: reports: No Symptoms Reported Musculoskeletal: reports: No Symptoms Integumentary: reports: No Symptoms Neurological: reports: No Symptoms Endocrine: reports: No Symptoms Hematology/Lymphatic: reports: No Symptoms Psychiatric: reports: No Symptoms Physical Exam Vital Sings: Vital Signs Temperature 98.5 F 06/06/19 10:00 Pulse Rate 103 H 06/06/19 10:00 Respiratory Rate 18 06/06/19 10:00 Blood Pressure 129/62 06/06/19 10:00 O2 Sat by Pulse Oximetry (%) 95 06/06/19 01:28 Constitutional: Yes: No Distress, Obese Eyes: Yes: Conjunctiva Clear, EOM Intact HENT: Yes: Atraumatic, Normocephalic Neck: Yes: Supple, Trachea Midline Cardiovascular: Yes: Pulse Irregular Respiratory: Yes: Cough, Diminished. No: Accessory Muscle Use, Rales, Rhonchi, SOB, SOB on Exertion, Stridor, Tachypnea, Wheezes ...Inspection: Yes: WNL ...Clubbing: No Gastrointestinal: Yes: Normal Bowel Sounds, Soft, Abdomen, Obese Renal/: Yes: WNL Musculoskeletal: Yes: WNL Extremities: Yes: WNL Edema: No Peripheral Pulses WNL: Yes Integumentary: Yes: WNL Neurological: Yes: WNL, Alert, Oriented ...Motor Strength: WNL Psychiatric: Yes: WNL, Alert, Oriented Labs: CBC, BMP 06/06/19 06:20 06/06/19 06:20 Imaging - Results Chest X-ray: Report Reviewed, Image Reviewed Cat Scan: Report Reviewed, Image Reviewed Problem List - Problems (1) Hemoptysis Code(s): R04.2 - HEMOPTYSIS (2) SCHUYLER (obstructive sleep apnea) Code(s): G47.33 - OBSTRUCTIVE SLEEP APNEA (ADULT) (PEDIATRIC) (3) Afib Code(s): I48.91 - UNSPECIFIED ATRIAL FIBRILLATION (4) Asthma Code(s): J45.909 - UNSPECIFIED ASTHMA, UNCOMPLICATED (5) Diabetes Code(s): E11.9 - TYPE 2 DIABETES MELLITUS WITHOUT COMPLICATIONS (6) HLD (hyperlipidemia) Code(s): E78.5 - HYPERLIPIDEMIA, UNSPECIFIED Assessment/Plan Would monitor off of systemic steroids and ABX for now. Single episode of blood tinged sputum in a patient on a DOAC. O2 as needed Symbicort BID No smoking Will need formal [facility]AS evaluation after discharge Outpatient PFTs [facility] Will follow Thank you. Dr White
--- NOTE | 2019-06-06 15:46 | PN ---
Progress Note, Physician History of Present Illness: Patient is an 83 year old man with a PMH of Afib (on xarelto), Obstructive sleep apnea, Left total knee replacement, Left shoulder surgery, Asthma, NIDDM and HLD sent from Urgent Care with EKG showing A-flutter. The patient reports that he has had shortness of breath and cough for the past 2 years which became worse in the past few weeks. Says he coughed up blood stained sputum once. He states that he went to urgent care and was told to come to the ER due to a concerning EKG which showed new A-flutter. Patient was recently hospitalized for right foot cellulitis at [facility] and was on a flight from [place] to [facility] in early April 2019. Has been on indocin for several weeks started at an [facility] for presumed gout. Patient denies headache, lightheadedness. Denies fever, chills. Denies chest pain. Denies nausea, vomiting, diarrhea, abdominal pain. Denies tobacco, alcohol or illicit drug use. Has FH of dementia. - Current Medication List Current Medications: Active Medications Budesonide/Formoterol Fumarate (Symbicort 80/4.5mcg -) 2 puff IH BID [facility] Last Admin: 06/06/19 11:05 Dose: 2 puff Hydrochlorothiazide (Hctz -) 12.5 mg PO DAILY [facility] Last Admin: 06/06/19 09:30 Dose: 12.5 mg Sodium Chloride (Normal Saline -) 1,000 mls @ 42 mls/hr IV ASDIR [facility] Last Admin: 06/05/19 23:19 Dose: 42 mls/hr Insulin Aspart (Novolog Vial Sliding Scale -) 1 vial SQ ACHS [facility]; Protocol Montelukast Sodium (Singulair -) 10 mg PO HS [facility] Last Admin: 06/05/19 23:19 Dose: 10 mg Pantoprazole Sodium (Protonix -) 40 mg PO DAILY [facility] Last Admin: 06/06/19 09:29 Dose: 40 mg Rivaroxaban (Xarelto) 20 mg PO DAILY@1800 [facility] Valsartan (Diovan -) 160 mg PO BID [facility] Last Admin: 06/06/19 09:30 Dose: 160 mg - Objective Vital Signs: Vital Signs Temperature 98.0 F 06/06/19 14:20 Pulse Rate 97 H 06/06/19 14:20 Respiratory Rate 18 06/06/19 14:20 Blood Pressure 141/64 06/06/19 14:20 O2 Sat by Pulse Oximetry (%) 96 06/06/19 09:00 Eyes: Yes: WNL, Conjunctiva Clear, EOM Intact HENT: Yes: WNL, Atraumatic, Normocephalic Neck: Yes: WNL, Supple, Trachea Midline Cardiovascular: Yes: Pulse Irregular, S1, S2 Respiratory: Yes: Diminished Gastrointestinal: Yes: WNL, Normal Bowel Sounds Genitourinary: Yes: WNL Musculoskeletal: Yes: WNL Extremities: Yes: WNL Edema: No Integumentary: Yes: WNL Neurological: Yes: WNL, Alert, Oriented ...Motor Strength: WNL Psychiatric: Yes: WNL Labs: CBC, BMP 06/06/19 06:20 06/06/19 06:20 INR, PTT INR 1.09 (0.83-1.09) 06/05/19 14:30 Problem List - Problems (1) Hemoptysis Code(s): R04.2 - HEMOPTYSIS (2) SCHUYLER (obstructive sleep apnea) Code(s): G47.33 - OBSTRUCTIVE SLEEP APNEA (ADULT) (PEDIATRIC) (3) FRED (acute kidney injury) Code(s): N17.9 - ACUTE KIDNEY FAILURE, UNSPECIFIED (4) Afib Code(s): I48.91 - UNSPECIFIED ATRIAL FIBRILLATION (5) Asthma Code(s): J45.909 - UNSPECIFIED ASTHMA, UNCOMPLICATED (6) Atelectasis Code(s): J98.11 - ATELECTASIS (7) Back muscle spasm Code(s): M62.830 - MUSCLE SPASM OF BACK (8) Cellulitis Code(s): L03.90 - CELLULITIS, UNSPECIFIED Qualifiers: Site of cellulitis: extremity Site of cellulitis of extremity: lower extremity Laterality: right Qualified Code(s): L03.115 - Cellulitis of right lower limb (9) Diabetes Code(s): E11.9 - TYPE 2 DIABETES MELLITUS WITHOUT COMPLICATIONS (10) HLD (hyperlipidemia) Code(s): E78.5 - HYPERLIPIDEMIA, UNSPECIFIED (11) Low back pain Code(s): M54.5 - LOW BACK PAIN Qualifiers: Chronicity: acute Back pain laterality: left Sciatica presence: unspecified whether sciatica present Qualified Code(s): M54.5 - Low back pain (12) Prophylactic measure Code(s): Z29.9 - ENCOUNTER FOR PROPHYLACTIC MEASURES, UNSPECIFIED Assessment/Plan 83 year old man with a PMH of Afib (on xarelto), Obstructive sleep apnea, Left total knee replacement, Left shoulder surgery, Asthma, NIDDM and HLD sent from Urgent Care with EKG showing A-flutter. Diagnosed wit COPD/CHF exacorbation plan as per pulmonary telemetry echo MIBI stress tets when stable
--- NOTE | 2019-06-06 15:49 | EKG ---
Test Reason : Blood Pressure : / mmHG Vent. Rate : 119 BPM Atrial Rate : 096 BPM P-R Int : 000 ms QRS Dur : 136 ms QT Int : 382 ms P-R-T Axes : 000 024 032 degrees QTc Int : 537 ms ATRIAL FIBRILLATION/ATRIAL FLUTTER WITH RAPID VENTRICULAR RESPONSE RIGHT BUNDLE BRANCH BLOCK ABNORMAL ECG WHEN COMPARED WITH ECG OF 05-JUN-2019 13:33, VENT. RATE HAS INCREASED Confirmed by ISIS GARCIA, BIBIANA ([id number]) on 06/06/2019 3:49:19 PM Referred By: Confirmed By:BIBIANA MARINELLI MD
[2019-06-06] MEDS ORDERED: SODIUM CHLORIDE FOR INHALATION 3 ML VIAL.NEB IH PRN (16:42)
[2019-06-06] MEDS: INSULIN SLIDING SCALE (NOVOLOG) 1 VIAL SQ SCH ×2 (16:48→22:30)
[2019-06-06] MEDS: RIVAROXABAN 20 MG TABLET PO SCH (17:24)
[2019-06-06 19:25] LABS: ALBUMIN 3.6 g/dl (3.4-5.0); BILIRUBIN,TOTAL 0.4 mg/dL (0.2-1); BLOOD UREA NITROGEN 22.8 mg/dL (7-18); CALCIUM 8.6 mg/dL (8.5-10.1); CREATININE 1.6 mg/dL (0.55-1.3); POTASSIUM 4.3 mmol/L (3.5-5.1); TOT PROT 7.3 g/dl (6.4-8.2)
[2019-06-06 21:35] LABS: EPI CELLS 0.3 /HPF (0-5/HPF); HYALINE CASTS 0 /lpf (0-8); PH,URINE 5.5 (5.0-8.0); URINE APPEARANCE CLEAR; URINE BACTERIA 1.5 /hpf (NEGATIVE); URINE BILIRUBIN NEGATIVE (NEGATIVE); URINE COLOR YELLOW; URINE GLUCOSE (UA) 2+ (NEGATIVE); URINE KETONE NEGATIVE (NEGATIVE); URINE LEUK ESTERASE NEGATIVE (NEGATIVE); URINE NITRITE NEGATIVE (NEGATIVE); URINE PROTEIN NEGATIVE (NEGATIVE); URINE RBC 0 /hpf (0-4); URINE UROBILINOGEN 0.2 mg/dL (0.2-1.0); URINE WBC 0 /hpf (0-5)
[2019-06-06] MEDS ORDERED: ATORVASTATIN CA 40 MG TABLET (FP) PO SCH (22:00)
[2019-06-06] MEDS: MONTELUKAST NA 10 MG TABLET PO SCH (22:30)
[2019-06-06] MEDS: SODIUM CHLORIDE 1,000 ML IV SCH (23:40)
[2019-06-07 06:46] LABS: BASO % 0.3 % (0-2.0); EOS % 0.1 % (0-4.5); HEMATOCRIT 35.6 % (35.4-49); HEMOGLOBIN 11.3 GM/dL (11.7-16.9); LYMPH % 13.7 % (8-40); MCH 27.4 pg (25.7-33.7); MCHC 31.8 g/dl (32.0-35.9); MEAN CELL VOLUME 85.9 fl (80-96); MONO % 7.3 % (3.8-10.2); NEUT % 78.6 % (42.8-82.8); PLATELET COUNT 292 K/MM3 (134-434); RBC 4.14 M/mm3 (4.00-5.60); RDW 15.5 % (11.9-15.9); WHITE BLOOD COUNT 13.9 K/mm3 (4.0-10.0)
[2019-06-07] MEDS: INSULIN SLIDING SCALE (NOVOLOG) 1 VIAL SQ SCH ×3 (07:04→17:18)
[2019-06-07 07:31] LABS: ALBUMIN 3.5 g/dl (3.4-5.0); BILIRUBIN,TOTAL 0.5 mg/dL (0.2-1); BLOOD UREA NITROGEN 22.3 mg/dL (7-18); CALCIUM 8.7 mg/dL (8.5-10.1); CREATININE 1.2 mg/dL (0.55-1.3); MAGNESIUM 2.3 mg/dL (1.8-2.4); POTASSIUM 4.2 mmol/L (3.5-5.1); TOT PROT 6.9 g/dl (6.4-8.2)
[2019-06-07] MEDS ORDERED: SOLIFENACIN SUCCINATE 5 MG TAB PO SCH (10:00)
[2019-06-07] MEDS ORDERED: REGADENOSON 0.4 MG/5 ML PRE-FILLED SYRINGE IVPUSH ONE ×2 (10:26→10:45)
--- NOTE | 2019-06-07 11:29 | PN ---
Progress Note, Physician History of Present Illness: pulmonary alrt,comfortable,-sob,-cp,-hemoptysis - Current Medication List Current Medications: Active Medications Atorvastatin Calcium (Lipitor -) 40 mg PO HS [facility] Last Admin: 06/06/19 22:30 Dose: 40 mg Budesonide/Formoterol Fumarate (Symbicort 80/4.5mcg -) 2 puff IH BID [facility] Last Admin: 06/06/19 22:32 Dose: 2 puff Hydrochlorothiazide (Hctz -) 12.5 mg PO DAILY [facility] Last Admin: 06/06/19 09:30 Dose: 12.5 mg Sodium Chloride (Normal Saline -) 1,000 mls @ 42 mls/hr IV ASDIR [facility] Last Admin: 06/06/19 23:40 Dose: 42 mls/hr Insulin Aspart (Novolog Vial Sliding Scale -) 1 vial SQ ACHS [facility]; Protocol Last Admin: 06/07/19 07:04 Dose: Not Given Montelukast Sodium (Singulair -) 10 mg PO HS [facility] Last Admin: 06/06/19 22:30 Dose: 10 mg Pantoprazole Sodium (Protonix -) 40 mg PO DAILY [facility] Last Admin: 06/06/19 09:29 Dose: 40 mg Rivaroxaban (Xarelto) 20 mg PO DAILY@1800 [facility] Last Admin: 06/06/19 17:24 Dose: 20 mg Sodium Chloride (Normal Saline For Inhalation -) 3 ml IH Q6H PRN PRN Reason: Dyspnea Solifenacin (Vesicare -) 5 mg PO DAILY [facility] Valsartan (Diovan -) 160 mg PO BID [facility] Last Admin: 06/06/19 22:30 Dose: 160 mg - Objective Vital Signs: Vital Signs Temperature 97.7 F 06/07/19 08:24 Pulse Rate 77 06/07/19 08:24 Respiratory Rate 20 06/07/19 08:24 Blood Pressure 101/53 L 06/07/19 08:24 O2 Sat by Pulse Oximetry (%) 96 06/07/19 08:23 Constitutional: Yes: Well Nourished, Calm Eyes: Yes: WNL HENT: Yes: WNL Neck: Yes: WNL Cardiovascular: Yes: Pulse Irregular, S1, S2 Respiratory: Yes: CTA Bilaterally Gastrointestinal: Yes: Normal Bowel Sounds, Abdomen, Obese Extremities: Yes: WNL Edema: Yes Labs: CBC, BMP 06/07/19 06:20 06/07/19 06:20 INR, PTT INR 1.09 (0.83-1.09) 06/05/19 14:30 Assessment/Plan Problem List - Problems (1) Hemoptysis Code(s): R04.2 - HEMOPTYSIS resolved (2) SCHUYLER (obstructive sleep apnea) Code(s): G47.33 - OBSTRUCTIVE SLEEP APNEA (ADULT) (PEDIATRIC) (3) Afib Code(s): I48.91 - UNSPECIFIED ATRIAL FIBRILLATION (4) Asthma Code(s): J45.909 - UNSPECIFIED ASTHMA, UNCOMPLICATED (5) Diabetes Code(s): E11.9 - TYPE 2 DIABETES MELLITUS WITHOUT COMPLICATIONS (6) HLD (hyperlipidemia) Code(s): E78.5 - HYPERLIPIDEMIA, UNSPECIFIED Assessment/Plan Would monitor off of systemic steroids and ABX for now. Single episode of blood tinged sputum in a patient on a DOAC. O2 as needed Symbicort BID No smoking Will need formal [facility] evaluation after discharge Outpatient PFTs [facility]
[2019-06-07] MEDS ORDERED: PT OWN MED DRAWER 7, Y5N ONE (11:36)
--- NOTE | 2019-06-07 11:41 | ECHO ---
Name: CLINTSALBADOR JORGEGREGORY Exam:Adult Echocardiogram Study Date: 06/07/2019 08:59 AM Age: 83 yrs Reason For Study: EF Height: 66 in Weight: 250 lb BSA: 2.2 m2 MMode/2D Measurements & Calculations IVSd: 1.3 cm Ao root diam: 3.2 cm LVIDd: 4.4 cm LA dimension: 4.1 cm LVIDs: 3.2 cm LVPWd: 1.2 cm LVPWs: 1.8 cm EDV(Teich): 86.1 ml ESV(Teich): 40.6 ml LVOT diam: 2.2 cm LAV (MOD-bp): 65.0 ml Doppler Measurements & Calculations MV V2 max: 99.9 cm/sec MV E max michael: 60.7 cm/sec MV max P.0 mmHg MV A max michael: 88.4 cm/sec MV V2 mean: 65.8 cm/sec MV E/A: 0.69 MV mean P.9 mmHg MV dec time: 0.09 sec MV V2 VTI: 25.0 cm Ao V2 max: 206.7 cm/sec LV V1 max P.7 mmHg Ao max P.3 mmHg LV V1 max: 95.8 cm/sec Ao V2 mean: 138.8 cm/sec Ao mean P.7 mmHg Ao V2 VTI: 39.8 cm SOTO(V,D): 1.7 cm2 PA V2 max: 122.2 cm/sec Med Peak E' Michael: 9.1 cm/sec PA max P.0 mmHg Med E/e': 6.7 Lat Peak E' Michael: 7.2 cm/sec Lat E/e': 8.4 Procedure A complete two-dimensional transthoracic echocardiogram was performed (2D, M-mode, Doppler and color flow Doppler). Left Ventricle The left ventricle is normal in size. There is mild concentric left ventricular hypertrophy. Left rika tricular systolic function is borderline reduced. Ejection Fraction = 50%. E/A reversal consistent with but no t diagnostic of poor LV compliance. There is inferior wall akinesis. Right Ventricle The right ventricle is normal in size and function. Atria The left atrium is borderline dilated. Right atrial size is normal. Mitral Valve There is mild mitral valve thickening. There is trace mitral regurgitation. Tricuspid Valve The tricuspid valve is normal in structure and function. There is trace tricuspid regurgitation. Ther e was insufficient TR detected to calculate RV systolic pressure. Aortic Valve There is moderate aortic valve thickening. Mild valvular aortic stenosis. Pulmonic Valve The pulmonic valve is normal in structure and function. Great Vessels The aortic root is normal size. Pericardium/Pleura There is no pericardial effusion. There is no pleural effusion. Interpretation Summary The left ventricle is normal in size. There is mild concentric left ventricular hypertrophy. There is inferior wall akinesis. Left ventricular systolic function is borderline reduced. Ejection Fraction = 50%. The right ventricle is normal in size and function. The left atrium is borderline dilated. There is trace mitral regurgitation. There is trace tricuspid regurgitation. There was insufficient TR detected to calculate RV systolic pressure. There is moderate aortic valve thickening. Mild valvular aortic stenosis. MD Oliver Johns 06/07/2019 11:40 AM
[2019-06-07] MEDS: HYDROCHLOROTHIAZIDE 12.5 MG CAPSULE (FP) PO SCH (13:36)
[2019-06-07] MEDS: VALSARTAN 160 MG TABLET (UD) PO SCH (13:36)
[2019-06-07] MEDS: PANTOPRAZOLE 40 MG TABLET (FP) PO SCH (13:37)
[2019-06-07] MEDS: BUDESONIDE/FORMETEROL FUMARATE 80/4.5 mcg INHALER IH SCH (13:38)
--- NOTE | 2019-06-07 14:01 | PN ---
Physical Exam: SUBJECTIVE: Patient seen and examined OBJECTIVE: Vital Signs Period Temp Pulse Resp BP Sys/Miguel Pulse Ox Last 24 Hr 97.6 F-98.1 F 77-97 18-20 101-147/50-78 96-97 GENERAL: The patient is awake, alert, and fully oriented, in no acute distress. HEAD: Normal with no signs of trauma. EYES: PERRL, extraocular movements intact, sclera anicteric, conjunctiva clear. No ptosis. ENT: Ears normal, nares patent, oropharynx clear without exudates, moist mucous membranes. NECK: Trachea midline, full range of motion, supple. LUNGS: Breath sounds equal, clear to auscultation bilaterally, no wheezes, no crackles, no accessory muscle use. HEART: Regular rate and rhythm, S1, S2 without murmur, rub or gallop. ABDOMEN: Soft, nontender, nondistended, normoactive bowel sounds, no guarding, no rebound, no hepatosplenomegaly, no masses. EXTREMITIES: 2+ pulses, warm, well-perfused, no edema. NEUROLOGICAL: Cranial nerves II through XII grossly intact. Normal speech, gait not observed. PSYCH: Normal mood, normal affect. SKIN: Warm, dry, normal turgor, no rashes or lesions noted Laboratory Results - last 24 hr 06/06/19 06/06/19 06/06/19 16:47 18:15 21:20 WBC RBC Hgb Hct MCV MCH MCHC RDW Plt Count MPV Absolute Neuts (auto) Neutrophils % Lymphocytes % Monocytes % Eosinophils % Basophils % Nucleated RBC % Sodium 135 L Potassium 4.3 Chloride 103 Carbon Dioxide 23 Anion Gap 10 BUN 22.8 H Creatinine 1.6 H Est GFR (CKD-EPI)AfAm 45.50 Est GFR (CKD-EPI)NonAf 39.26 POC Glucometer 373 Random Glucose 340 H Calcium 8.6 Magnesium Total Bilirubin 0.4 AST 22 ALT 31 Alkaline Phosphatase 77 Troponin I 0.06 H Total Protein 7.3 Albumin 3.6 Urine Color Yellow Urine Appearance Clear Urine pH 5.5 Ur Specific [place] 1.008 L Urine Protein Negative Urine Glucose (UA) 2+ H Urine Ketones Negative Urine Blood 1+ H Urine Nitrite Negative Urine Bilirubin Negative Urine Urobilinogen 0.2 Ur Leukocyte Esterase Negative Urine WBC (Auto) 0 Urine RBC (Auto) 0 Urine Casts (Auto) 0 U Epithel Cells (Auto) 0.3 Urine Bacteria (Auto) 1.5 06/06/19 06/07/19 06/07/19 22:26 06:07 06:20 WBC 13.9 H RBC 4.14 Hgb 11.3 L Hct 35.6 MCV 85.9 MCH 27.4 MCHC 31.8 L RDW 15.5 Plt Count 292 MPV 7.0 L Absolute Neuts (auto) 10.9 H Neutrophils % 78.6 Lymphocytes % 13.7 D Monocytes % 7.3 D Eosinophils % 0.1 D Basophils % 0.3 Nucleated RBC % 0 Sodium Potassium Chloride Carbon Dioxide Anion Gap BUN Creatinine Est GFR (CKD-EPI)AfAm Est GFR (CKD-EPI)NonAf POC Glucometer 205 167 Random Glucose Calcium Magnesium Total Bilirubin AST ALT Alkaline Phosphatase Troponin I Total Protein Albumin Urine Color Urine Appearance Urine pH Ur Specific [place] Urine Protein Urine Glucose (UA) Urine Ketones Urine Blood Urine Nitrite Urine Bilirubin Urine Urobilinogen Ur Leukocyte Esterase Urine WBC (Auto) Urine RBC (Auto) Urine Casts (Auto) U Epithel Cells (Auto) Urine Bacteria (Auto) 06/07/19 06:20 WBC RBC Hgb Hct MCV MCH MCHC RDW Plt Count MPV Absolute Neuts (auto) Neutrophils % Lymphocytes % Monocytes % Eosinophils % Basophils % Nucleated RBC % Sodium 139 Potassium 4.2 Chloride 107 Carbon Dioxide 27 Anion Gap 5 L BUN 22.3 H Creatinine 1.2 Est GFR (CKD-EPI)AfAm 64.42 Est GFR (CKD-EPI)NonAf 55.58 POC Glucometer Random Glucose 165 H Calcium 8.7 Magnesium 2.3 Total Bilirubin 0.5 AST 36 ALT 34 Alkaline Phosphatase 65 Troponin I 0.07 H Total Protein 6.9 Albumin 3.5 Urine Color Urine Appearance Urine pH Ur Specific [place] Urine Protein Urine Glucose (UA) Urine Ketones Urine Blood Urine Nitrite Urine Bilirubin Urine Urobilinogen Ur Leukocyte Esterase Urine WBC (Auto) Urine RBC (Auto) Urine Casts (Auto) U Epithel Cells (Auto) Urine Bacteria (Auto) Active Medications Generic Name Dose Route Start Last Admin Trade Name Freq PRN Reason Stop Dose Admin Atorvastatin Calcium 40 mg 06/06/19 22:00 06/06/19 22:30 Lipitor - PO 40 mg HS ASHLEE Administration Budesonide/Formoterol Fumarate 2 puff 06/05/19 22:30 06/07/19 13:38 Symbicort 80/4.5mcg - IH 2 puff BID ASHLEE Administration Hydrochlorothiazide 12.5 mg 06/06/19 10:00 06/07/19 13:36 Hctz - PO 12.5 mg DAILY ASHLEE Administration Sodium Chloride 1,000 mls @ 42 mls/hr 06/05/19 22:15 06/06/19 23:40 Normal Saline - IV 42 mls/hr ASDIR ASHLEE Administration Insulin Aspart 1 vial 06/06/19 16:30 06/07/19 07:04 Novolog Vial Sliding Scale - SQ Not Given ACHS ASHLEE Protocol Montelukast Sodium 10 mg 06/05/19 22:15 06/06/19 22:30 Singulair - PO 10 mg HS ASHLEE Administration Pantoprazole Sodium 40 mg 06/06/19 10:00 06/07/19 13:37 Protonix - PO 40 mg DAILY ASHLEE Administration Rivaroxaban 20 mg 06/06/19 18:00 06/06/19 17:24 Xarelto PO 20 mg DAILY@1800 ASHLEE Administration Sodium Chloride 3 ml 06/06/19 16:42 Normal Saline For Inhalation - IH Q6H PRN Dyspnea Solifenacin 5 mg 06/07/19 10:00 06/07/19 13:38 Vesicare - PO 5 mg DAILY ASHLEE Administration Valsartan 160 mg 06/05/19 22:30 06/07/19 13:36 Diovan - PO 160 mg BID ASHLEE Administration ASSESSMENT/PLAN:
[2019-06-07 14:53] VITALS: BMI 40.5
--- NOTE | 2019-06-07 16:37 | PN ---
Progress Note, Physician Chief Complaint: Pt A&Ox3; denies chest pain or dyspnea; no palpitations. History of Present Illness: The patient is an 83 year old male (torey Burris) with a past medical history of afib (xarelto), asthma, diabetes, and HLD here today for evaluation of shortness of breath. The patient reports that he has had shortness of breath and cough for the past 2 years which became worse in the past few weeks. He states that he went to urgent care and was told to come to the ER due to a concerning EKG which showed new A-flutter. - Current Medication List Current Medications: Active Medications Atorvastatin Calcium (Lipitor -) 40 mg PO HS [facility] Last Admin: 06/06/19 22:30 Dose: 40 mg Budesonide/Formoterol Fumarate (Symbicort 80/4.5mcg -) 2 puff IH BID [facility] Last Admin: 06/07/19 13:38 Dose: 2 puff Hydrochlorothiazide (Hctz -) 12.5 mg PO DAILY [facility] Last Admin: 06/07/19 13:36 Dose: 12.5 mg Sodium Chloride (Normal Saline -) 1,000 mls @ 42 mls/hr IV ASDIR [facility] Last Admin: 06/06/19 23:40 Dose: 42 mls/hr Insulin Aspart (Novolog Vial Sliding Scale -) 1 vial SQ ACHS [facility]; Protocol Last Admin: 06/07/19 11:00 Dose: Not Given Montelukast Sodium (Singulair -) 10 mg PO HS [facility] Last Admin: 06/06/19 22:30 Dose: 10 mg Pantoprazole Sodium (Protonix -) 40 mg PO DAILY [facility] Last Admin: 06/07/19 13:37 Dose: 40 mg Rivaroxaban (Xarelto) 20 mg PO DAILY@1800 [facility] Last Admin: 06/06/19 17:24 Dose: 20 mg Sodium Chloride (Normal Saline For Inhalation -) 3 ml IH Q6H PRN PRN Reason: Dyspnea Solifenacin (Vesicare -) 5 mg PO DAILY [facility] Last Admin: 06/07/19 13:38 Dose: 5 mg Valsartan (Diovan -) 160 mg PO BID [facility] Last Admin: 06/07/19 13:36 Dose: 160 mg - Objective Vital Signs: Vital Signs Temperature 97.5 F L 06/07/19 15:00 Pulse Rate 93 H 06/07/19 15:09 Respiratory Rate 20 06/07/19 15:00 Blood Pressure 127/67 06/07/19 15:00 O2 Sat by Pulse Oximetry (%) 95 06/07/19 15:09 Constitutional: Yes: Anxious, Obese Eyes: Yes: WNL HENT: Yes: WNL Neck: Yes: WNL Cardiovascular: Yes: S1, S2 Respiratory: Yes: WNL Gastrointestinal: Yes: Soft, Abdomen, Obese ...Rectal Exam: Yes: Deferred Genitourinary: No: Anuria Breast(s): Yes: WNL Musculoskeletal: Yes: Joint Stiffness (knee (s/p surgery)) Extremities: Yes: Other (gait disturbance from) Edema: No Peripheral Pulses WNL: Yes Integumentary: Yes: WNL Neurological: Yes: Alert, Oriented, Unsteady Gait (from knee (s/p surgery)) Psychiatric: Yes: WNL Labs: CBC, BMP 06/07/19 06:20 06/07/19 06:20 INR, PTT INR 1.09 (0.83-1.09) 06/05/19 14:30 Abnormal Lab Results 06/06/19 06/06/19 06/07/19 18:15 21:20 06:20 WBC 13.9 H Hgb 11.3 L MCHC 31.8 L MPV 7.0 L Absolute Neuts (auto) 10.9 H Sodium 135 L Anion Gap BUN 22.8 H Creatinine 1.6 H Random Glucose 340 H Troponin I 0.06 H Ur Specific [place] 1.008 L Urine Glucose (UA) 2+ H Urine Blood 1+ H 06/07/19 06:20 WBC Hgb MCHC MPV Absolute Neuts (auto) Sodium Anion Gap 5 L BUN 22.3 H Creatinine Random Glucose 165 H Troponin I 0.07 H Ur Specific [place] Urine Glucose (UA) Urine Blood - ....Imaging Chest X-ray: Image Reviewed EKG: Image Reviewed Other: Image Reviewed (telemetry: Atrial flutter) Problem List - Problems (1) Atrial flutter Assessment/Plan: Start diltiazem CD 120 mg daily (beta blockers are relatively contraindicated due to pt's history of "asthma" that he has had for 30 yrs; f/u with pulmonologis). On rivaroxaban. F/u TSH. Code(s): I48.92 - UNSPECIFIED ATRIAL FLUTTER Qualifiers: Atrial flutter type: unspecified Qualified Code(s): I48.92 - Unspecified atrial flutter (2) HTN (hypertension) Code(s): I10 - ESSENTIAL (PRIMARY) HYPERTENSION (3) SCHUYLER (obstructive sleep apnea) Code(s): G47.33 - OBSTRUCTIVE SLEEP APNEA (ADULT) (PEDIATRIC) (4) CAD (coronary artery disease) Assessment/Plan: Stress MIBI today: moderate area moderately-severe intensity inferior ischemia; gated studies showed normal LVEF (50%). ECHO: borderline reduced LVEF. Long discussion was had with pt, his daughter, Tamica, and his , about the need for coronary angiogram. Despite being made aware of the high riks of cardiac event (including angina, [place] , exacerbation of AF, and cardiac ), pt insisted on going home. f/u lipids; start statin. ASA 81 mg daily. He will be followed as an outpatient. HHe will eventually benefit from cardiac rehabilitation. Diet modification, weight loss are important. Code(s): I25.10 - ATHSCL HEART DISEASE OF [place] CORONARY ARTERY W/O ANG PCTRS (5) Morbid obesity Assessment/Plan: the imperative need to decrease weight was discussed. Code(s): E66.01 - MORBID (SEVERE) OBESITY DUE TO EXCESS CALORIES (6) Gout Assessment/Plan: Pt's daughter says he was started on Indomethicin a few weeks ago for foot pain suspected to be gout; the pain has subsided. It was explained that NSAIDs may increase the reisk for bleed (with rivaroxaban) , and may increase risk of cardiac events (CHF, CVA, [place]). It may also be necessary to consider colchicine. F/u with PMD regarding investigation as to whether pt does have gout. Code(s): M10.9 - GOUT, UNSPECIFIED
[2019-06-07] MEDS: RIVAROXABAN 20 MG TABLET PO SCH (17:18)
--- NOTE | 2019-06-07 18:01 | DS ---
Physical Exam: SUBJECTIVE: Patient seen and examined at the bedside. OBJECTIVE: Patient is an 83 year old male with a past medical history of afib (xarelto), asthma, diabetes, and HLD here for evaluation of shortness of breath. The patient reports that he has had shortness of breath and cough for the past 2 years which became worse in the past few weeks. He states that he went to urgent care and was told to come to the ER due to a concerning EKG which showed new A-flutter. Vital Signs Period Temp Pulse Resp BP Sys/Miguel Pulse Ox Last 24 Hr 97.5 F-98.1 F 77-94 18-20 101-147/50-78 95-97 PHYSICAL EXAM GENERAL: The patient is awake, alert, and fully oriented, in no acute distress. HEAD: Normal with no signs of trauma. EYES: PERRL, extraocular movements intact, sclera anicteric, conjunctiva clear. ENT: Ears normal, nares patent, oropharynx clear without exudates, moist mucous membranes. NECK: Trachea midline, full range of motion, supple. LUNGS: Breath sounds equal, clear to auscultation bilaterally HEART: irregular rhythm ABDOMEN: Soft, nontender, nondistended, normoactive bowel sounds, no guarding, no rebound, no hepatosplenomegaly, no masses. EXTREMITIES: 2+ pulses, warm, well-perfused, no edema. NEUROLOGICAL: Cranial nerves II through XII grossly intact. Normal speech, gait not observed. PSYCH: Normal mood, normal affect. SKIN: Warm, dry, normal turgor, no rashes or lesions noted. LABS Laboratory Results - last 24 hr 06/06/19 06/06/19 06/06/19 18:15 21:20 22:26 WBC RBC Hgb Hct MCV MCH MCHC RDW Plt Count MPV Absolute Neuts (auto) Neutrophils % Lymphocytes % Monocytes % Eosinophils % Basophils % Nucleated RBC % Sodium 135 L Potassium 4.3 Chloride 103 Carbon Dioxide 23 Anion Gap 10 BUN 22.8 H Creatinine 1.6 H Est GFR (CKD-EPI)AfAm 45.50 Est GFR (CKD-EPI)NonAf 39.26 POC Glucometer 205 Random Glucose 340 H Calcium 8.6 Magnesium Total Bilirubin 0.4 AST 22 ALT 31 Alkaline Phosphatase 77 Troponin I 0.06 H Total Protein 7.3 Albumin 3.6 Urine Color Yellow Urine Appearance Clear Urine pH 5.5 Ur Specific [place] 1.008 L Urine Protein Negative Urine Glucose (UA) 2+ H Urine Ketones Negative Urine Blood 1+ H Urine Nitrite Negative Urine Bilirubin Negative Urine Urobilinogen 0.2 Ur Leukocyte Esterase Negative Urine WBC (Auto) 0 Urine RBC (Auto) 0 Urine Casts (Auto) 0 U Epithel Cells (Auto) 0.3 Urine Bacteria (Auto) 1.5 06/07/19 06/07/19 06/07/19 06:07 06:20 06:20 WBC 13.9 H RBC 4.14 Hgb 11.3 L Hct 35.6 MCV 85.9 MCH 27.4 MCHC 31.8 L RDW 15.5 Plt Count 292 MPV 7.0 L Absolute Neuts (auto) 10.9 H Neutrophils % 78.6 Lymphocytes % 13.7 D Monocytes % 7.3 D Eosinophils % 0.1 D Basophils % 0.3 Nucleated RBC % 0 Sodium 139 Potassium 4.2 Chloride 107 Carbon Dioxide 27 Anion Gap 5 L BUN 22.3 H Creatinine 1.2 Est GFR (CKD-EPI)AfAm 64.42 Est GFR (CKD-EPI)NonAf 55.58 POC Glucometer 167 Random Glucose 165 H Calcium 8.7 Magnesium 2.3 Total Bilirubin 0.5 AST 36 ALT 34 Alkaline Phosphatase 65 Troponin I 0.07 H Total Protein 6.9 Albumin 3.5 Urine Color Urine Appearance Urine pH Ur Specific [place] Urine Protein Urine Glucose (UA) Urine Ketones Urine Blood Urine Nitrite Urine Bilirubin Urine Urobilinogen Ur Leukocyte Esterase Urine WBC (Auto) Urine RBC (Auto) Urine Casts (Auto) U Epithel Cells (Auto) Urine Bacteria (Auto) 06/07/19 16:00 WBC RBC Hgb Hct MCV MCH MCHC RDW Plt Count MPV Absolute Neuts (auto) Neutrophils % Lymphocytes % Monocytes % Eosinophils % Basophils % Nucleated RBC % Sodium Potassium Chloride Carbon Dioxide Anion Gap BUN Creatinine Est GFR (CKD-EPI)AfAm Est GFR (CKD-EPI)NonAf POC Glucometer 213 Random Glucose Calcium Magnesium Total Bilirubin AST ALT Alkaline Phosphatase Troponin I Total Protein Albumin Urine Color Urine Appearance Urine pH Ur Specific [place] Urine Protein Urine Glucose (UA) Urine Ketones Urine Blood Urine Nitrite Urine Bilirubin Urine Urobilinogen Ur Leukocyte Esterase Urine WBC (Auto) Urine RBC (Auto) Urine Casts (Auto) U Epithel Cells (Auto) Urine Bacteria (Auto) HOSPITAL COURSE: Date of Admission:06/05/19 Date of Discharge: 06/07/19 Minutes to complete discharge: 45 Discharge Summary Problems reviewed: Yes Reason For Visit: ASTHMA Current Active Problems Atrial flutter (Acute) HTN (hypertension) (Acute) Hemoptysis (Acute) SCHUYLER (obstructive sleep apnea) (Acute) Condition: Stable - Instructions Diet, Activity, Other Instructions: Mr. Wilson: Please follow up with Dr. Herrera or a metal bench patternmaker of your choice for follow up. It is important that you do so as we are starting you on new cardiac medications: Cardizem 120mg once per day for heart rate control Lisinopril 2.5mg once per day for blood pressure control Please stop all other blood pressure medications that you have at home as it may drop your pressure too much. I have also called in a BP wrist device so that you can take and monitor your blood pressures at home. Please keep track of your blood pressures at home. Thank you for allowing us to care for you. questions? Please call me [place] [employer] [phone] [facility] Referrals: Tip Herrera MD [Staff Physician] - Jaky Hahn [Primary Care Provider] - Disposition: HOME - Home Medications Comprehensive Discharge Medication List: Ambulatory Orders Linaclotide [Linzess] 290 mcg PO DAILY 04/21/19 Metformin HCl [Glucophage] 1,000 mg PO BID 04/21/19 Montelukast Sodium [Singulair] 10 mg PO DAILY 04/21/19 Oxybutynin Chloride [Oxybutynin Chloride ER] 5 mg PO DAILY 04/21/19 Repaglinide 0.5 mg PO BID 04/21/19 Sitagliptin Phosphate [Januvia] 100 mg PO DAILY 04/21/19 Rivaroxaban [Xarelto -] 20 mg PO HS 04/23/19 Methocarbamol [Robaxin -] 500 mg PO BID #10 tablet 04/28/19 Cyclobenzaprine HCl [Flexeril -] 10 mg PO HS PRN 06/05/19 Indomethacin [Indocin -] 50 mg PO TID 06/05/19 Atorvastatin Ca [Lipitor] 40 mg PO HS #90 tablet 06/07/19 Blood Pressure Test Kit-Wrist [Blood Pressure Kit] 1 each MC DAILY #1 kit Diltiazem Cd [Cardizem Cd -] 120 mg PO DAILY #90 cap.cd.24h 06/07/19 Lisinopril [Prinivil] 2.5 mg PO DAILY #90 tablet 06/07/19 Problem List - Problems (1) CAD (coronary artery disease) Assessment/Plan: Stress MIBI today: moderate area moderately-severe intensity inferior ischemia; gated studies showed normal LVEF (50%). ECHO: borderline reduced LVEF. Patient refusing to stay in hospital any further and demanding to leave. Discussed the possiblity of need of coronary angiogram, but refusing to stay even when risks dicussed. Patient and family willing to follow up outpatient. Discussed with cardiology who advised patient to be started on cardizem 120 daily and low dose lisinopril. Statin increased to 40mg daily patient encouraged to lose weight as his BMI is 40 and puts him at higher risk for cardiac complications and daughter to follow up with cardiology outpatient. Code(s): I25.10 - ATHSCL HEART DISEASE OF [place] CORONARY ARTERY W/O ANG PCTRS (2) FRED (acute kidney injury) Assessment/Plan: resolved with hydration Code(s): N17.9 - ACUTE KIDNEY FAILURE, UNSPECIFIED (3) Atrial flutter Assessment/Plan: on xarelto. started on cardizem 120 daily, lisinopril 2.5mg daily patient to follow up with cardiology outpatient. Code(s): I48.92 - UNSPECIFIED ATRIAL FLUTTER Qualifiers: Atrial flutter type: unspecified Qualified Code(s): I48.92 - Unspecified atrial flutter (4) Diabetes Assessment/Plan: continue home medications. (on metformin) Code(s): E11.9 - TYPE 2 DIABETES MELLITUS WITHOUT COMPLICATIONS (5) HLD (hyperlipidemia) Assessment/Plan: lipitor increased from 10mg to 40mg daily Code(s): E78.5 - HYPERLIPIDEMIA, UNSPECIFIED (6) HTN (hypertension) Assessment/Plan: started on lisinopril Code(s): I10 - ESSENTIAL (PRIMARY) HYPERTENSION (7) Leukocytosis Assessment/Plan: wbc increased to 13 today, no fevers or malaise. followup outpatient with PCP. family aware and agree to follow up. no signs of infection Code(s): D72.829 - ELEVATED WHITE BLOOD CELL COUNT, UNSPECIFIED (8) Prophylactic measure Code(s): Z29.9 - ENCOUNTER FOR PROPHYLACTIC MEASURES, UNSPECIFIED This patient is new to me today: Yes Date on this admission: 06/07/19 Emergency Visit: Yes ED Registration Date: 06/05/19 Care time: The patient presented to the Emergency Department on the above date and was hospitalized for further evaluation of their emergent condition. Critical Care patient: No - Discharge Referral Referred to [facility] Med P.C.: No
[2019-06-07 18:27] VITALS: BP 135/75; PULSE 77; TEMP 97.8
[2019-06-08] MEDS ORDERED: LISINOPRIL 5 MG TABLET (FP) PO SCH (10:00)
== END 2019-06-07 18:34 | disposition home or self-care (01) | DRG 202 ==
LOC: JER 13:19 → JERBED 20:20 → J4S 06-06 01:17
PROVIDERS: ADMIT Internal Medicine; ATTEND Nurse Practitioner Family
DX: J45.901 Unspecified asthma with (acute) exacerbation (principal); I48.92 Unspecified atrial flutter; Z68.41 Body mass index [BMI] 40.0-44.9, adult; R04.2 Hemoptysis; N17.9 Acute kidney failure, unspecified; J98.11 Atelectasis; L03.115 Cellulitis of right lower limb; E11.9 Type 2 diabetes mellitus without complications; M10.9 Gout, unspecified; E78.5 Hyperlipidemia, unspecified; I45.10 Unspecified right bundle-branch block; I48.91 Unspecified atrial fibrillation; G47.33 Obstructive sleep apnea (adult) (pediatric); R00.0 Tachycardia, unspecified; M62.830 Muscle spasm of back; M54.5 Low back pain; K76.0 Fatty (change of) liver, not elsewhere classified; E66.01 Morbid (severe) obesity due to excess calories; I12.9 Hypertensive chronic kidney disease with stage 1 through stage 4 chronic kidney disease, or unspecified chronic kidney disease; E11.22 Type 2 diabetes mellitus with diabetic chronic kidney disease; N18.9 Chronic kidney disease, unspecified; Z96.652 Presence of left artificial knee joint
CPT/HCPCS: 36415; 71045-TC-FY; 71275-TC; 78452-TC; 80053; 80061; 81003; 82550; 82553; 82962; 83721; 83735; 83880; 84100; 84443; 84484; 84550; 85025; 85379; 85610; 85730; 87804; 93005; 93010; 93017; 93306-TC; 94761; 99285-25; A9502; J2785; J7030

== ENCOUNTER 2021-03-08 10:54 | Observation (INO) | payer OTHER ==
[2021-03-08 11:08] VITALS: BMI 40.3
[2021-03-08 12:03] LABS: BASO % 1.2 % (0-2.0); EOS % 6.4 % (0-4.5); HEMATOCRIT 32.8 % (35.4-49); HEMOGLOBIN 10.9 GM/dL (11.7-16.9); LYMPH % 24.1 % (8-40); MCH 29.3 pg (25.7-33.7); MCHC 33.3 g/dl (32.0-35.9); MEAN CELL VOLUME 87.9 fl (80-96); MEAN PLT VOLUME 6.1 fl (7.5-11.1); MONO % 9.8 % (3.8-10.2); NEUT % 58.5 % (42.8-82.8); PLATELET COUNT 231 10^3/uL (134-434); RBC 3.73 M/mm3 (4.00-5.60); RDW 15.3 % (11.9-15.9); WHITE BLOOD COUNT 6.3 K/mm3 (4.0-10.0)
[2021-03-08 12:10] LABS: INR 0.96 (0.83-1.09); PROTHROMBIN TIME (PATIENT) 11.8 SEC (9.7-13.0)
[2021-03-08 12:13] LABS: ACTIVATED PTT 30.1 SECONDS (25.2-36.5); VENOUS BASE EXCESS -1.4 mmol/L (-2-2); VENOUS O2 SATURATION 80.6 % (70-80); VENOUS PCO2 45.6 mmHg (38-52); VENOUS PH 7.347 (7.310-7.410)
[2021-03-08 12:22] LABS: CHLORIDE 107 mmol/L (98-107); SODIUM 139 mmol/L (136-145)
[2021-03-08 12:24] LABS: CALCIUM 8.1 mg/dL (8.5-10.1)
[2021-03-08 12:25] LABS: ALBUMIN 3.6 g/dl (3.4-5.0); ANION GAP 8 MMOL/L (8-16); BLOOD UREA NITROGEN 15.9 mg/dL (7-18); CO2 24 mmol/L (21-32); GLUCOSE,RANDOM 143 mg/dL (74-106)
[2021-03-08] MEDS ORDERED: ALBUTEROL SO4 2.5/IPRATROPIUM 0.5 INH SOL 3 ML VIAL.NEB. NEB ONE ×3 (12:26→15:45)
[2021-03-08 12:28] LABS: CREATININE 1.2 mg/dL (0.55-1.3); SGOT/AST 27 U/L (15-37); SGPT/ALT 47 U/L (13-61)
[2021-03-08 12:30] LABS: BILIRUBIN,TOTAL 0.3 mg/dL (0.2-1); TOT PROT 7.2 g/dl (6.4-8.2)
[2021-03-08 12:31] LABS: ALK PHOS 101 U/L (45-117)
[2021-03-08 12:33] LABS: N-TERMINAL BNP 176.7 pg/ml (5-450)
[2021-03-08] MEDS ORDERED: methylPREDNISolone NA SUCC 125 MG/2 ML VIAL IVPUSH ONE (12:40)
[2021-03-08] MEDS ORDERED: methylPREDNISolone NA SUCC 125 MG/2 ML VIAL ONE (12:44)
[2021-03-08] MEDS ORDERED: ALBUTEROL SO4 2.5/IPRATROPIUM 0.5 INH SOL 3 ML VIAL.NEB. NEB PRN (14:55)
[2021-03-08] MEDS: ALBUTEROL SO4 2.5/IPRATROPIUM 0.5 INH SOL 3 ML VIAL.NEB. NEB SCH ×2 (16:07→21:00)
[2021-03-08] MEDS ORDERED: FUROSEMIDE 40 MG/4 ML INJECTABLE VIAL IVPUSH ONE (16:16)
[2021-03-08] MEDS ORDERED: FUROSEMIDE 40 MG/4 ML INJECTABLE VIAL ONE (16:58)
[2021-03-08] MEDS: INSULIN SLIDING SCALE (NOVOLOG) 1 VIAL SQ SCH ×2 (17:02→22:58)
[2021-03-08] MEDS ORDERED: methylPREDNISolone NA SUCC 40 MG/1 ML VIAL ONE (18:35)
[2021-03-08] MEDS: methylPREDNISolone NA SUCC 40 MG/1 ML VIAL IVPUSH SCH (18:47)
[2021-03-08 20:42] LABS: CHOLESTEROL 124 mg/dL (50-200)
[2021-03-08 20:43] LABS: TRIGLYCERIDES 191 mg/dL (0-150)
[2021-03-08 20:44] LABS: LDL CHOLESTEROL (ONLY SJRH) 58 mg/dL (5-100)
[2021-03-08 20:45] LABS: HDL CHOLESTEROL 41 mg/dL (40-60)
[2021-03-09] MEDS: methylPREDNISolone NA SUCC 40 MG/1 ML VIAL IVPUSH SCH ×2 (01:19→10:00)
[2021-03-09] MEDS: INSULIN SLIDING SCALE (NOVOLOG) 1 VIAL SQ SCH ×2 (06:47→10:55)
[2021-03-09 06:49] LABS: BASO % 0.2 % (0-2.0); HEMATOCRIT 32.9 % (35.4-49); HEMOGLOBIN 11.1 GM/dL (11.7-16.9); LYMPH % 9.2 % (8-40); MCH 29.1 pg (25.7-33.7); MCHC 33.8 g/dl (32.0-35.9); MEAN CELL VOLUME 86.1 fl (80-96); MEAN PLT VOLUME 6.6 fl (7.5-11.1); MONO % 2.1 % (3.8-10.2); NEUT % 88.5 % (42.8-82.8); PLATELET COUNT 234 10^3/uL (134-434); RBC 3.81 M/mm3 (4.00-5.60); RDW 15.2 % (11.9-15.9)
[2021-03-09 07:20] LABS: ALBUMIN 3.4 g/dl (3.4-5.0); BLOOD UREA NITROGEN 20.3 mg/dL (7-18); MAGNESIUM 1.8 mg/dL (1.8-2.4)
[2021-03-09 07:23] LABS: CREATININE 1.2 mg/dL (0.55-1.3)
[2021-03-09 07:24] LABS: PHOSPHOROUS 3.5 mg/dL (2.5-4.9)
[2021-03-09 07:25] LABS: BILIRUBIN,TOTAL 0.5 mg/dL (0.2-1); TOT PROT 7.2 g/dl (6.4-8.2)
[2021-03-09] MEDS: ALBUTEROL SO4 2.5/IPRATROPIUM 0.5 INH SOL 3 ML VIAL.NEB. NEB SCH ×2 (09:12→12:50)
[2021-03-09] MEDS ORDERED: LISINOPRIL 5 MG TABLET PO SCH (10:00)
[2021-03-09 14:55] VITALS: BP 137/73; PULSE 95; TEMP 98
[2021-03-09] MEDS ORDERED: RIVAROXABAN 20 MG TABLET PO SCH (17:30)
[2021-03-09] MEDS ORDERED: ATORVASTATIN CA 10 MG TABLET (FP) PO SCH (22:00)
[2021-03-10] MEDS ORDERED: ALLOPURINOL 100 MG TABLET (FP) PO SCH (10:00)
== END 2021-03-09 17:31 | disposition home or self-care (01) ==
LOC: JER 10:54 → JERBED 13:49 → INTOOBSV 14:51 → OBSVTOIN 14:51 → J4W 21:14
PROVIDERS: ATTEND Internal Medicine
PROC: 3E0F7GC Introduction of Other Therapeutic Substance into Respiratory Tract, Via Natural or Artificial Opening (ICD-10-PCS; principal; 2021-03-08)
PROC: 3E033GC Introduction of Other Therapeutic Substance into Peripheral Vein, Percutaneous Approach (ICD-10-PCS; 2021-03-08)
PROC: 3E013VG Introduction of Insulin into Subcutaneous Tissue, Percutaneous Approach (ICD-10-PCS; 2021-03-08)
DX: I25.10 Atherosclerotic heart disease of native coronary artery without angina pectoris (principal); I48.91 Unspecified atrial fibrillation; I11.9 Hypertensive heart disease without heart failure; G47.33 Obstructive sleep apnea (adult) (pediatric); J45.909 Unspecified asthma, uncomplicated; E78.5 Hyperlipidemia, unspecified; M10.9 Gout, unspecified; E66.01 Morbid (severe) obesity due to excess calories; Z68.45 Body mass index [BMI] 70 or greater, adult; Z96.611 Presence of right artificial shoulder joint; R33.9 Retention of urine, unspecified
CPT/HCPCS: 36415; 71045-TC-FY; 80053; 80061; 82550; 82553; 82803; 82962; 83036; 83721; 83735; 83880; 84100; 84443; 84484; 85025; 85610; 85730; 93005; 93010; 93306-TC; 94640; 96372; 96374; 96375; 96376; 99285-25; C9803; G0378; U0003; U0005

== ENCOUNTER 2021-05-16 13:07 | Emergency (ER) | payer OTHER ==
[2021-05-16 13:51] VITALS: BP 142/67; PULSE 73; TEMP 98.1; BMI 42.4
== END 2021-05-16 17:30 | disposition home or self-care (01) ==
LOC: JER 13:07
DX: S20.211A Contusion of right front wall of thorax, initial encounter (principal); S09.90XA Unspecified injury of head, initial encounter; W01.0XXA Fall on same level from slipping, tripping and stumbling without subsequent striking against object, initial encounter
CPT/HCPCS: 70450-TC; 71045-TC-FY; 71101-TC-RT-FY; 99284-25

== ENCOUNTER 2021-06-27 10:47 | Emergency (ER) | payer OTHER ==
[2021-06-27 11:07] VITALS: TEMP 97.7; BMI 35.7
[2021-06-27 14:26] LABS: HEMATOCRIT 33.4 % (35.4-49); HEMOGLOBIN 10.9 GM/dL (11.7-16.9); MCH 28.9 pg (25.7-33.7); MCHC 32.7 g/dl (32.0-35.9); MEAN CELL VOLUME 88.4 fl (80-96); MEAN PLT VOLUME 6.8 fl (7.5-11.1); PLATELET COUNT 268 10^3/uL (134-434); RBC 3.78 M/mm3 (4.00-5.60); RDW 14.8 % (11.9-15.9); WHITE BLOOD COUNT 6.9 K/mm3 (4.0-10.0)
[2021-06-27 14:44] LABS: CHLORIDE 105 mmol/L (98-107); SODIUM 139 mmol/L (136-145)
[2021-06-27 14:45] LABS: MAGNESIUM 2.1 mg/dL (1.8-2.4)
[2021-06-27 14:46] LABS: ALBUMIN 3.2 g/dl (3.4-5.0); ANION GAP 8 MMOL/L (8-16); BLOOD UREA NITROGEN 13.8 mg/dL (7-18); CALCIUM 8.5 mg/dL (8.5-10.1); CO2 26 mmol/L (21-32); GLUCOSE,RANDOM 142 mg/dL (74-106)
[2021-06-27 14:49] LABS: CREATININE 1.2 mg/dL (0.55-1.3); SGOT/AST 33 U/L (15-37); SGPT/ALT 22 U/L (13-61)
[2021-06-27 14:51] LABS: BILIRUBIN,TOTAL 0.3 mg/dL (0.2-1); TOT PROT 7.2 g/dl (6.4-8.2)
[2021-06-27 14:52] LABS: ALK PHOS 117 U/L (45-117)
[2021-06-27 14:53] LABS: N-TERMINAL BNP 215.4 pg/ml (5-450)
[2021-06-27 18:13] VITALS: BP 133/73; PULSE 78
== END 2021-06-27 19:01 | disposition home or self-care (01) ==
LOC: JER 10:47 → JCOVINFU 10:47 → JER 19:01
DX: R05.3 Chronic cough (principal); I44.0 Atrioventricular block, first degree
CPT/HCPCS: 36415; 71046-TC-FY; 71250-TC; 80053; 82550; 82553; 83036; 83735; 83880; 84484; 85027; 87804; 87807; 93005; 93010; 99285-25; C9803; U0003; U0005

== ENCOUNTER 2022-02-20 08:29 | Emergency (ER) | payer OTHER ==
[2022-02-20 08:40] VITALS: BMI 39.9
[2022-02-20] MEDS ORDERED: LIDOCAINE 5% TOPICAL PATCH TP ONE (09:01)
[2022-02-20] MEDS ORDERED: METHOCARBAMOL 500 MG TABLET PO ONE (09:01)
[2022-02-20] MEDS ORDERED: ACETAMINOPHEN 500 MG TABLET (FP) PO ONE (09:02)
[2022-02-20] MEDS ORDERED: NAPROXEN 375 MG TABLET PO ONE (09:03)
[2022-02-20] MEDS ORDERED: METHOCARBAMOL 500 MG TABLET ONE (09:19)
[2022-02-20] MEDS ORDERED: ACETAMINOPHEN 325 MG TABLET (FP) ONE (09:20)
[2022-02-20] MEDS ORDERED: LIDOCAINE 5% TOPICAL PATCH ONE (09:20)
[2022-02-20 11:39] LABS: EPI CELLS 5 /uL (0-25.1); HYALINE CASTS 2 /uL (0-3.1); URINE APPEARANCE CLEAR; URINE BACTERIA 14 /uL (0-1359); URINE BILIRUBIN 1+ (NEGATIVE); URINE COLOR DK YELLOW; URINE GLUCOSE (UA) 2+ (NEGATIVE); URINE KETONE TRACE (NEGATIVE); URINE LEUK ESTERASE NEGATIVE (NEGATIVE); URINE NITRITE NEGATIVE (NEGATIVE); URINE PROTEIN 1+ (NEGATIVE); URINE RBC 8 /uL (0-23.9); URINE WBC 8 /uL (0-25.8)
[2022-02-20 12:08] VITALS: BP 121/62; PULSE 60
[2022-02-20 12:09] VITALS: TEMP 97.6
[2022-02-20] MEDS ORDERED: LIDOCAINE PATCH REMOVAL MC ONE (22:00)
== END 2022-02-20 12:13 | disposition home or self-care (01) ==
LOC: JER 08:29
DX: M25.562 Pain in left knee (principal)
CPT/HCPCS: 72100-TC-FY; 72170-TC-FY; 81003; 87086; 99284-25

== ENCOUNTER 2022-08-22 15:00 | Emergency (ER) | payer OTHER ==
[2022-08-22 15:12] VITALS: BP 134/57; PULSE 65; RESP 20; TEMP 98.1; BMI 38.2
[2022-08-22] MEDS ORDERED: ACETAMINOPHEN 500 MG TABLET (FP) PO ONE (15:26)
[2022-08-22] MEDS ORDERED: ACETAMINOPHEN 500 MG TABLET (FP) ONE (15:56)
[2022-08-22 16:38] LABS: BASO % 0.7 % (0-2.0); EOS % 2.8 % (0-4.5); HEMATOCRIT 33.8 % (35.4-49); HEMOGLOBIN 11.3 GM/dL (11.7-16.9); LYMPH % 18.3 % (8-40); MCHC 33.5 g/dl (32.0-35.9); MEAN CELL VOLUME 86.6 fl (80-96); MEAN PLT VOLUME 6.4 fl (7.5-11.1); MONO % 10.4 % (3.8-10.2); NEUT % 67.8 % (42.8-82.8); PLATELET COUNT 279 10^3/uL (134-434); RDW 13.9 % (11.9-15.9); WHITE BLOOD COUNT 8.6 K/mm3 (4.0-10.0)
[2022-08-22 17:00] LABS: INR 1.07 (0.83-1.09); PROTHROMBIN TIME (PATIENT) 12.3 SEC (9.7-13.0)
[2022-08-22 17:03] LABS: ACTIVATED PTT 34.5 SECONDS (25.2-36.5)
[2022-08-22 17:04] LABS: CALCIUM 8.5 mg/dL (8.5-10.1)
[2022-08-22 17:05] LABS: ALBUMIN 3.6 g/dl (3.4-5.0); BLOOD UREA NITROGEN 13.8 mg/dL (7-18)
[2022-08-22 17:08] LABS: CREATININE 1.1 mg/dL (0.55-1.3)
[2022-08-22 17:09] LABS: BILIRUBIN,TOTAL 0.4 mg/dL (0.2-1); TOT PROT 7.1 g/dl (6.4-8.2)
[2022-08-22] MEDS ORDERED: DIPHTH,PERTUSS(ACELL),TET 0.5 ML DISP.SYRIN IM ONE ×2 (20:42→20:43)
[2022-08-22] MEDS ORDERED: BACITRACIN ZINC 15 GM TUBE TOPICAL OINTMENT ONE (20:53)
== END 2022-08-22 21:07 | disposition home or self-care (01) ==
LOC: JER 15:00
PROC: 3E0234Z Introduction of Serum, Toxoid and Vaccine into Muscle, Percutaneous Approach (ICD-10-PCS; principal; 2022-08-22)
DX: S00.01XA Abrasion of scalp, initial encounter (principal); W01.0XXA Fall on same level from slipping, tripping and stumbling without subsequent striking against object, initial encounter; Z79.01 Long term (current) use of anticoagulants
CPT/HCPCS: 36415; 70450-TC; 71046-TC-FY; 72125-TC; 73110-TC-RT-FY; 73130-TC-RT-FY; 80053; 85025; 85610; 85730; 90471; 90715; 93005; 93010; 99285-25

== ENCOUNTER 2024-04-15 17:08 | Emergency (ER) | payer OTHER ==
[2024-04-15 17:16] VITALS: BP 147/67; PULSE 69; RESP 18; TEMP 98.1; BMI 39.9
== END 2024-04-15 19:19 | disposition home or self-care (01) ==
LOC: JER 17:08
DX: T17.1XXA Foreign body in nostril, initial encounter (principal)
CPT/HCPCS: 99283-25